=== PATIENT | female | born 1975 | race Caucasian/White ===

== ENCOUNTER 2019-03-31 14:33 | Inpatient (IN) | payer OTHER ==
[2019-03-31 15:34] VITALS: BMI 28.8
--- NOTE | 2019-03-31 18:13 | HP ---
COWS - Scale Resting Pulse: 0= [place] 80 or Below Sweatin=Flushed/Facial Moisture Restless Observation: 3= Extraneous Movement Pupil Size: 1= Pupils >than Normal Bone or Joint Aches: 2= Severe Diffuse Aches Runny Nose/ Eye Tearin= Runny Nose/Eyes GI Upset > 30mins: 2= Nausea/Diarrhea Tremor Observation: 2= Slight Tremor Visible Yawning Observation: 1= 1-2x During Session Anxiety or Irritability: 2=Irritable/Anxious Goose Flesh Skin: 3=Piloerection COWS Score: 20 CIWA Score Nausea/Vomitin Muscle Tremors: 3 Anxiety: 3 Agitation: 2 Paroxysmal Sweats: 2 Orientation: 0-Oriented Tacttile Disturbances: 2-Mild Itch/Numbness/Burn Auditory Disturbances: 1-Very Mild Visual Disturbances: 1-Very Mild Sensitivity Headache: 3-Moderate CIWA-Ar Total Score: 20 - Admission Criteria OASAS Guidelines: Admission for Medically Managed Detox: Requires at least one of the followin. CIWA greater than 12 2. Seizures within the past 24 hours 3. Delirium tremens within the past 24 hours 4. Hallucinations within the past 24 hours 5. Acute intervention needed for co occurring medical disorder 6. Acute intervention needed for co occurring psychiatric disorder 7. Severe withdrawal that cannot be handled at a lower level of care (continued vomiting, continued diarrhea, abnormal vital signs) requiring intravenous medication and/or fluids 8. Patient presents the following: CIWA greater than 12 Admission Criteria Met: Admission criteria met Admission ROS [facility] Chief Complaint: I am very sick and so over this Allergies/Adverse Reactions: Allergies Allergy/AdvReac Type Severity Reaction Status Date / Time buprenorphine [From Suboxone] Allergy Intermediate Rash Verified 03/31/19 15:27 naloxone [From Suboxone] Allergy Intermediate Rash Verified 03/31/19 15:27 History of Present Illness: 43 year old woman with dependence on heroin and Xanax, previously on methadone maintenance presents for detox. She denies overdose. - Ebola screening Have you traveled outside of the country in the last 21 days: No Have you had contact with anyone from an Ebola affected area: No Have you been sick,other than usual withdrawal symptoms: No Do you have a fever: No - Review of Systems Constitutional: Chills, Loss of Appetite, Changes in sleep, Unintentional Wgt. Loss EENT: reports: Blurred Vision, Nose Congestion, Sinus Pressure Respiratory: reports: SOB with Exertion Cardiac: reports: No Symptoms Reported GI: reports: Nausea, Poor Fluid Intake, Vomiting, Abdominal cramping : reports: No Symptoms Reported Musculoskeletal: reports: Back Pain, Joint Pain, Muscle Pain, Muscle Weakness, Neck Pain Integumentary: reports: Flushing, Sweating Neuro: reports: Headache, Tremors, Weakness Endocrine: reports: Intolerance to Cold Hematology: reports: No Symptoms Reported Psychiatric: reports: Anxious Other Systems: Reviewed and Negative Patient History - Patient Medical History Hx Anemia: No Hx Asthma: No Hx Chronic Obstructive Pulmonary Disease (COPD): No Hx Cancer: No Hx Cardiac Disorders: No Hx Congestive Heart Failure: No Hx Hypertension: No Hx Hypercholesterolemia: No Hx Pacemaker: No HX Cerebrovascular Accident: No Hx Seizures: No Hx Dementia: No Hx Diabetes: No Hx Gastrointestinal Disorders: No Hx Liver Disease: No Hx Genitourinary Disorders: No Hx Sexually Transmitted Disorders: No Hx Renal Disease (ESRD): No Hx Thyroid Disease: No Hx Human Immunodeficiency Virus (HIV): No Hx Hepatitis C: Yes (treated) Hx Depression: No Hx Suicide Attempt: No Hx Bipolar Disorder: No Hx Schizophrenia: No - Patient Surgical History Other Surgical History: tubal ligation - PPD History Previous Implant?: Yes Documented Results: Negative w/o proof Implanted On Prior R Admission?: No PPD to be Administered?: Yes - Reproductive History Patient is a Female of Child Bearing Age (11 -55 yrs old): Yes Last Menstrual Period: 11/30/18 Patient : No - Smoking Cessation Smoking history: Current every day smoker Have you smoked in the past 12 months: Yes Aproximately how many cigarettes per day: 20 Hx Chewing Tobacco Use: No Initiated information on smoking cessation: Yes 'Breaking Loose' booklet given: 03/31/19 - Substances abused Heroin Substance route: Injection Frequency: Daily Amount used: 20bags Age of first use: 33 Date of last use: 03/31/19 Alprazolam (Xanax) Substance route: Oral Frequency: Daily Amount used: 2mg Age of first use: 37 Date of last use: 03/30/19 Other Other (specify): fentanyl Substance route: Injection Frequency: Daily Amount used: 20 bags Age of first use: 43 Date of last use: 03/31/19 Admission Physical Exam [facility] - Vital Signs Vital Signs: Vital Signs - 24 hr 03/31/19 15:19 Temperature 98.7 F Pulse Rate 75 Respiratory 18 Rate Blood Pressure 100/70 - Physical General Appearance: Yes: Mild Distress HEENTM: Yes: Hearing grossly Normal, Normal ENT Inspection, Normocephalic, Normal Voice, Pharynx Normal, Tm's normal, Nasal Congestion Respiratory: Yes: Chest Non-Tender, Lungs Clear, Normal Breath Sounds, No Respiratory Distress, No Accessory Muscle Use Neck: Yes: No masses,lesions,Nodules, Supple Breast: Yes: Breast Exam Deferred Cardiology: Yes: Regular Rhythm, Regular Rate, S1, S2 Abdominal: Yes: Normal Bowel Sounds, Soft Genitourinary: Yes: Within Normal Limits Back: Yes: Normal Inspection Musculoskeletal: Yes: Back pain, Joint Stiffness, Muscle Pain, Muscle weakness Extremities: Yes: Tremors Neurological: Yes: Fully Oriented, Alert, Motor Strength 5/5, Normal Mood/Affect , Normal Response Integumentary: Yes: Clammy, Track Harris Lymphatic: Yes: Within Normal Limits - Diagnostic (1) Heroin addiction Current Visit: Yes Status: Acute (2) Benzodiazepine abuse, continuous Current Visit: Yes Status: Acute (3) Nicotine dependence Current Visit: Yes Status: Acute Qualifiers: Nicotine product type: cigarettes Substance use status: uncomplicated Qualified Code(s): F17.210 - Nicotine dependence, cigarettes, uncomplicated Cleared for Admission [facility] - Detox or Rehab [facility] Level of Care: Medically Managed Detox Regimen/Protocol: Methadone/Valium Claeared for Rehab Admission: No Breathalyzer - Breathalyzer Breathalyzer: 0 Urine Drug Screen - Test Device Lot number: [id number] Expiration date: 11/29/20 - Control Is test valid?: Yes - Results Drug screen NEGATIVE: No Urine drug screen results: FEN-Fentanyl, MOP-Opiates, BZO-Benzodiazepines Inpatient Rehab Admission - Rehab Decision to Admit Inpatient rehab admission?: No
[2019-03-31] MEDS ORDERED: BISMUTH SUBSALICYLATE 524 MG/30 ML UD PO PRN (18:26)
[2019-03-31] MEDS ORDERED: MAGNESIUM HYDROX 2400MG/30ML ORAL SUSPENSION 30 ML CUP PO PRN (18:26)
[2019-03-31] MEDS ORDERED: MAGNESIUM CITRATE 300 ML BOTTLE PO PRN (18:26)
[2019-03-31] MEDS ORDERED: MAG HYDROX/AL HYDROX/SIMETH 30 ML UNIT-DOSE CUP PO PRN (18:26)
[2019-03-31] MEDS ORDERED: NICOTINE POLACRILEX 2 MG GUM BUC PRN (18:26)
[2019-03-31] MEDS ORDERED: IBUPROFEN 400 MG TABLET (FP) PO PRN (18:26)
[2019-03-31] MEDS ORDERED: MENTHOL/PHENOL 1 EACH UD MM PRN (18:26)
[2019-03-31] MEDS ORDERED: NALOXONE HCL 0.4 MG/ML VIAL IM PRN (18:26)
[2019-03-31] MEDS ORDERED: ACETAMINOPHEN 325 MG TABLET (FP) PO PRN ×2 (18:26)
[2019-03-31] MEDS ORDERED: cloNIDine HCL 0.1 MG TABLET PO PRN (18:26)
[2019-03-31] MEDS ORDERED: METHADONE HCL 10 MG TABLET (FOR DETOX USE ONLY) PO ONE (18:26)
[2019-03-31] MEDS ORDERED: diazePAM 5 MG TABLET PO ONE (18:26)
[2019-03-31] MEDS: NICOTINE 14 MG/24 HOURS TOPICAL PATCH TD SCH (19:40)
[2019-03-31] MEDS: diazePAM 5 MG TABLET PO SCH (22:32)
[2019-03-31] MEDS: THIAMINE HCL 100 MG TABLET (FP) PO SCH (22:32)
[2019-03-31] MEDS: MELATONIN 5 MG TABLETS PO PRN (22:32)
[2019-04-01] MEDS: diazePAM 5 MG TABLET PO SCH ×3 (05:36→22:20)
[2019-04-01] MEDS ORDERED: METHADONE HCL 10 MG TABLET (FOR DETOX USE ONLY) ONE (08:34)
[2019-04-01] MEDS ORDERED: METHADONE HCL 5 MG TABLET (FOR DETOX USE ONLY) ONE (08:34)
[2019-04-01] MEDS ORDERED: TRIMETHOBENZAMIDE HCL 200MG/2ML INJ IM ONE (09:30)
[2019-04-01] MEDS ORDERED: METHADONE (DETOX) 20 MG, METHADONE (DETOX) 5 MG PO ONE (10:00)
[2019-04-01] MEDS: PRENATAL VITAMINS W/ FOLIC ACID TABLET (FP) PO SCH (10:14)
[2019-04-01] MEDS: diazePAM 5 MG TABLET PO PRN (10:16)
[2019-04-01] MEDS: NICOTINE 14 MG/24 HOURS TOPICAL PATCH TD SCH (10:17)
--- NOTE | 2019-04-01 10:55 | PN ---
[facility] CIWA - CIWA Score Nausea/Vomitin-Mild Nausea/No Vomiting Muscle Tremors: 4-Moderate,w/Arms Extend Anxiety: 4-Mod. Anxious/Guarded Agitation: 2 Paroxysmal Sweats: 2 Orientation: 2-Disoriented Date<2 days (date of week day of month) Tacttile Disturbances: 0-None Auditory Disturbances: 0-None Visual Disturbances: 0-None Headache: 0-None Present CIWA-Ar Total Score: 15 S COWS - Scale Resting Pulse: 0= [place] 80 or Below Sweatin= Chills/Flushing Restless Observation: 0= Sits Still Pupil Size: 1= Pupils >than Normal Bone or Joint Aches: 2= Severe Diffuse Aches Runny Nose/ Eye Tearin= Nasal Congestion GI Upset > 30mins: 2= Nausea/Diarrhea Tremor Observation of Outstretched Hands: 2= Slight Tremor Visible Yawning Observation: 1= 1-2x During Session Anxiety or Irritability: 2=Irritable/Anxious Goose Flesh Skin: 3=Piloerection COWS Score: 15 [facility] Progress Note (SOAP) Subjective: 43 years old female admitted on 03/31/19 for benzo and opiate withdrawal sx management treated with valium and methadone detox regimen feeling nausea unable to tolerated food and fluid tigan IM x 1 200 mg Objective: 04/01/19 10:55 Vital Signs Temperature 98.3 F 04/01/19 09:27 Pulse Rate 64 04/01/19 09:27 Respiratory Rate 18 04/01/19 09:27 Blood Pressure 111/71 04/01/19 09:27 O2 Sat by Pulse Oximetry (%) 04/01/19 10:55 lab pending Assessment: 04/01/19 10:56 benzo and opiate withdrawal sx Plan: continue valium and methadone detox regimen
[2019-04-01 12:35] LABS: HEMATOCRIT 37.4 % (32.4-45.2); HEMOGLOBIN 12.3 GM/dL (10.7-15.3); MCH 28.4 pg (25.7-33.7); MCHC 32.8 g/dl (32.0-36.0); MEAN CELL VOLUME 86.5 fl (80-96); RBC 4.32 M/mm3 (3.60-5.2); WHITE BLOOD COUNT 2.8 K/mm3 (4.0-10.0)
[2019-04-01 12:47] LABS: ALBUMIN 3.8 g/dl (3.4-5.0); BILIRUBIN,TOTAL 1.1 mg/dL (0.2-1); CALCIUM 8.8 mg/dL (8.5-10.1); CREATININE 0.8 mg/dL (0.55-1.3); POTASSIUM 3.5 mmol/L (3.5-5.1); TOT PROT 7.3 g/dl (6.4-8.2)
[2019-04-01 13:27] LABS: PLATELET COUNT 70 K/MM3 (134-434)
--- NOTE | 2019-04-01 13:57 | CONSULT ---
[facility] Psychiatric Consult - Data Date of interview: 04/01/19 Admission source: [facility] Identifying data: Distribution Center Manager approached patient for psychiatric consultation. Patient stated to sheet writer, " I am really sick right now. I don't want to talk." Psychiatric consultation refused. Nursing staff informed. Please order another psychiatric consultation if requested by patient.
[2019-04-01] MEDS: MELATONIN 5 MG TABLETS PO PRN (22:20)
[2019-04-01] MEDS: THIAMINE HCL 100 MG TABLET (FP) PO SCH (22:20)
[2019-04-02] MEDS: diazePAM 5 MG TABLET PO SCH ×2 (05:44→17:17)
[2019-04-02] MEDS: METHOCARBAMOL 500 MG TABLET PO PRN ×2 (05:46→17:17)
[2019-04-02] MEDS ORDERED: TRIMETHOBENZAMIDE HCL 200MG/2ML INJ IM ONE (09:52)
[2019-04-02] MEDS ORDERED: DIPHENOXYLATE 2.5/ATROPINE.025 1 COMBO TABLET PO ONE (09:52)
[2019-04-02] MEDS ORDERED: DICYCLOMINE HCL 10 MG CAPSULE PO ONE (09:54)
--- NOTE | 2019-04-02 09:56 | PN ---
S CIWA - CIWA Score Nausea/Vomitin Muscle Tremors: 4-Moderate,w/Arms Extend Anxiety: 3 Agitation: 2 Paroxysmal Sweats: 2 Orientation: 1-Uncertain about Date Tacttile Disturbances: 0-None Auditory Disturbances: 0-None Visual Disturbances: 0-None Headache: 0-None Present CIWA-Ar Total Score: 14 [facility] COWS - Scale Resting Pulse: 0= [place] 80 or Below Sweatin= Chills/Flushing Restless Observation: 0= Sits Still Pupil Size: 1= Pupils >than Normal Bone or Joint Aches: 1= Mild Discomfort Runny Nose/ Eye Tearin= Nasal Congestion GI Upset > 30mins: 3= Vomiting/Diarrhea Tremor Observation of Outstretched Hands: 2= Slight Tremor Visible Yawning Observation: 0= None Anxiety or Irritability: 2=Irritable/Anxious Goose Flesh Skin: 3=Piloerection COWS Score: 14 S Progress Note (SOAP) Subjective: 43 years old female admitted on 03/31/19 for benzo and opiate withdrawal sx management treated with valium and methadone detox regimen diarrhea x 1 lomotil x 1 vomiting x 1 tigan 200 mg IM x 1 bentyle x 1 discontinue motrin begin pepcide 20 mg po bid Objective: 04/02/19 10:00 Vital Signs Temperature 97.9 F 04/02/19 09:09 Pulse Rate 65 04/02/19 09:09 Respiratory Rate 18 04/02/19 09:09 Blood Pressure 98/62 04/02/19 09:09 O2 Sat by Pulse Oximetry (%) Laboratory Last Values WBC 2.8 K/mm3 (4.0-10.0) L 04/01/19 07:50 RBC 4.32 M/mm3 (3.60-5.2) 04/01/19 07:50 Hgb 12.3 GM/dL (10.7-15.3) 04/01/19 07:50 Hct 37.4 % (32.4-45.2) 04/01/19 07:50 MCV 86.5 fl (80-96) 04/01/19 07:50 MCH 28.4 pg (25.7-33.7) 04/01/19 07:50 MCHC 32.8 g/dl (32.0-36.0) 04/01/19 07:50 RDW 15.0 % (11.6-15.6) 04/01/19 07:50 Plt Count 70 K/MM3 (134-434) L 04/01/19 07:50 MPV 10.0 fl (7.5-11.1) 04/01/19 07:50 Sodium 138 mmol/L (136-145) 04/01/19 07:50 Potassium 3.5 mmol/L (3.5-5.1) 04/01/19 07:50 Chloride 104 mmol/L (98-107) 04/01/19 07:50 Carbon Dioxide 30 mmol/L (21-32) 04/01/19 07:50 Anion Gap 4 MMOL/L (8-16) L 04/01/19 07:50 BUN 13.0 mg/dL (7-18) 04/01/19 07:50 Creatinine 0.8 mg/dL (0.55-1.3) 04/01/19 07:50 Est GFR (CKD-EPI)AfAm 104.65 04/01/19 07:50 Est GFR (CKD-EPI)NonAf 90.30 04/01/19 07:50 Random Glucose 86 mg/dL (74-106) 04/01/19 07:50 Calcium 8.8 mg/dL (8.5-10.1) 04/01/19 07:50 Total Bilirubin 1.1 mg/dL (0.2-1) H 04/01/19 07:50 AST 16 U/L (15-37) 04/01/19 07:50 ALT 14 U/L (13-61) 04/01/19 07:50 Alkaline Phosphatase 65 U/L (45-117) 04/01/19 07:50 Total Protein 7.3 g/dl (6.4-8.2) 04/01/19 07:50 Albumin 3.8 g/dl (3.4-5.0) 04/01/19 07:50 lab noted 04/02/19 10:01 encourage oral fluid repeat cbc discontinue motrin Assessment: 04/02/19 10:02 benzo and opiate withdrawal sx Plan: continue valium and methadone detox regimen discuss medication assisted treatment program
[2019-04-02] MEDS ORDERED: METHADONE HCL 10 MG TABLET (FOR DETOX USE ONLY) PO ONE (10:00)
[2019-04-02] MEDS: diazePAM 5 MG TABLET PO PRN ×2 (10:14→22:15)
[2019-04-02] MEDS: PRENATAL VITAMINS W/ FOLIC ACID TABLET (FP) PO SCH (10:14)
[2019-04-02] MEDS: NICOTINE 14 MG/24 HOURS TOPICAL PATCH TD SCH (10:53)
--- NOTE | 2019-04-02 12:01 | EKG ---
Test Reason : Blood Pressure : / mmHG Vent. Rate : 065 BPM Atrial Rate : 065 BPM P-R Int : 170 ms QRS Dur : 082 ms QT Int : 418 ms P-R-T Axes : 045 046 053 degrees QTc Int : 434 ms NORMAL SINUS RHYTHM WITH SINUS ARRHYTHMIA NORMAL ECG NO PREVIOUS ECGS AVAILABLE Confirmed by KIRILL KIMBLE MD ([id number]) on 04/02/2019 12:00:32 PM Referred By: Confirmed By:KIRILL KIMBLE MD
[2019-04-02] MEDS: FAMOTIDINE 20 MG TABLET PO SCH ×2 (12:34→22:11)
[2019-04-02] MEDS: MELATONIN 5 MG TABLETS PO PRN (22:11)
[2019-04-02] MEDS: THIAMINE HCL 100 MG TABLET (FP) PO SCH (22:16)
[2019-04-03] MEDS: METHOCARBAMOL 500 MG TABLET PO PRN (05:26)
[2019-04-03] MEDS ORDERED: diazePAM 5 MG TABLET PO ONE (06:00)
[2019-04-03 06:04] VITALS: BP 102/64; PULSE 74; TEMP 98
[2019-04-03] MEDS ORDERED: METHADONE (DETOX) 10 MG, METHADONE (DETOX) 5 MG PO ONE (10:00)
--- NOTE | 2019-04-03 11:22 | DS ---
[facility] Detox Discharge Summary Admission Date: 03/31/19 Discharge Date: 04/03/19 - History Present History: Opioid Dependence, Sedative Dependence Additional Comments: 43 years old female admitted on 03/31/19 for benzo and opiate withdrawal sx management treated with valium and methadone detox regimen patient insists to leave the detox unit patient is alert oriented x 3 steady gait speech clearly coherently refuses discharge ciwa and cows refuses discharge physical examination Pertinent Past History: discharge status discussed with the nurse that against medical advice is appropriated and best suitable for the circumstance - Physical Exam Results Vital Signs: Vital Signs Temperature 98.0 F 04/03/19 06:04 Pulse Rate 74 04/03/19 06:04 Respiratory Rate 18 04/03/19 06:04 Blood Pressure 102/64 04/03/19 06:04 O2 Sat by Pulse Oximetry (%) Pertinent Admission Physical Exam Findings: benzo and opiate withdrawal sx Laboratory Last Values WBC 2.8 K/mm3 (4.0-10.0) L 04/01/19 07:50 RBC 4.32 M/mm3 (3.60-5.2) 04/01/19 07:50 Hgb 12.3 GM/dL (10.7-15.3) 04/01/19 07:50 Hct 37.4 % (32.4-45.2) 04/01/19 07:50 MCV 86.5 fl (80-96) 04/01/19 07:50 MCH 28.4 pg (25.7-33.7) 04/01/19 07:50 MCHC 32.8 g/dl (32.0-36.0) 04/01/19 07:50 RDW 15.0 % (11.6-15.6) 04/01/19 07:50 Plt Count 70 K/MM3 (134-434) L 04/01/19 07:50 MPV 10.0 fl (7.5-11.1) 04/01/19 07:50 Sodium 138 mmol/L (136-145) 04/01/19 07:50 Potassium 3.5 mmol/L (3.5-5.1) 04/01/19 07:50 Chloride 104 mmol/L (98-107) 04/01/19 07:50 Carbon Dioxide 30 mmol/L (21-32) 04/01/19 07:50 Anion Gap 4 MMOL/L (8-16) L 04/01/19 07:50 BUN 13.0 mg/dL (7-18) 04/01/19 07:50 Creatinine 0.8 mg/dL (0.55-1.3) 04/01/19 07:50 Est GFR (CKD-EPI)AfAm 104.65 04/01/19 07:50 Est GFR (CKD-EPI)NonAf 90.30 04/01/19 07:50 Random Glucose 86 mg/dL (74-106) 04/01/19 07:50 Calcium 8.8 mg/dL (8.5-10.1) 04/01/19 07:50 Total Bilirubin 1.1 mg/dL (0.2-1) H 04/01/19 07:50 AST 16 U/L (15-37) 04/01/19 07:50 ALT 14 U/L (13-61) 04/01/19 07:50 Alkaline Phosphatase 65 U/L (45-117) 04/01/19 07:50 Total Protein 7.3 g/dl (6.4-8.2) 04/01/19 07:50 Albumin 3.8 g/dl (3.4-5.0) 04/01/19 07:50 POC Urine HCG, Qual Negative 03/31/19 17:33 lab noted low plt no motrin low wbc patient agrees to follow up with [facility] provider - Treatment Hospital Course: Detox Protocol Followed, Responded well Patient has Accepted a Rehab Referral to: [facility] - Medication Discharge Medications: Ambulatory Orders Naloxone HCl [Narcan] 4 mg NS ASDIR PRN #1 spray 04/01/19 - Diagnosis (1) Sedative, hypnotic or anxiolytic abuse, uncomplicated Status: Acute (2) Heroin addiction Status: Acute (3) Nicotine dependence Status: Acute Qualifiers: Nicotine product type: cigarettes Substance use status: in withdrawal Qualified Code(s): F17.213 - Nicotine dependence, cigarettes, with withdrawal - AMA Did Patient Leave Against Medical Advice: Yes
[2019-04-04] MEDS ORDERED: METHADONE HCL 10 MG TABLET (FOR DETOX USE ONLY) PO ONE (10:00)
[2019-04-05] MEDS ORDERED: METHADONE HCL 5 MG TABLET (FOR DETOX USE ONLY) PO ONE (06:00)
== END 2019-04-03 08:48 | disposition home or self-care (01) | DRG 773 ==
LOC: YASAS 14:33 → Y3N 19:02
PROVIDERS: ADMIT Allergy & Immunology; ATTEND Allergy & Immunology
PROC: HZ2ZZZZ Detoxification Services for Substance Abuse Treatment (ICD-10-PCS; principal; 2019-03-31)
DX: F11.23 Opioid dependence with withdrawal (principal); F13.230 Sedative, hypnotic or anxiolytic dependence with withdrawal, uncomplicated; F17.210 Nicotine dependence, cigarettes, uncomplicated; Z86.19 Personal history of other infectious and parasitic diseases; Z88.8 Allergy status to other drugs, medicaments and biological substances
CPT/HCPCS: 36415; 80053; 81025; 85027; 86593; 93005; 93010

== ENCOUNTER 2019-04-24 09:09 | Inpatient (IN) | payer OTHER ==
[2019-04-24 09:39] VITALS: BMI 29.2
--- NOTE | 2019-04-24 10:04 | HP ---
COWS - Scale Resting Pulse: 1= [place] 81-100 Sweatin= Chills/Flushing Restless Observation: 1= Difficult to Sit Still Pupil Size: 1= Pupils >than Normal Bone or Joint Aches: 2= Severe Diffuse Aches Runny Nose/ Eye Tearin= Runny Nose/Eyes GI Upset > 30mins: 2= Nausea/Diarrhea Tremor Observation: 2= Slight Tremor Visible Yawning Observation: 1= 1-2x During Session Anxiety or Irritability: 2=Irritable/Anxious Goose Flesh Skin: 0=Smooth Skin COWS Score: 15 CIWA Score Nausea/Vomitin Muscle Tremors: 2 Anxiety: 3 Agitation: 3 Paroxysmal Sweats: 1-Minimal Palms Moist Orientation: 0-Oriented Tacttile Disturbances: 1-Very Mild Itch/Numbness Auditory Disturbances: 0-None Visual Disturbances: 0-None Headache: 2-Mild CIWA-Ar Total Score: 14 - Admission Criteria OASAS Guidelines: Admission for Medically Managed Detox: Requires at least one of the followin. CIWA greater than 12 2. Seizures within the past 24 hours 3. Delirium tremens within the past 24 hours 4. Hallucinations within the past 24 hours 5. Acute intervention needed for co occurring medical disorder 6. Acute intervention needed for co occurring psychiatric disorder 7. Severe withdrawal that cannot be handled at a lower level of care (continued vomiting, continued diarrhea, abnormal vital signs) requiring intravenous medication and/or fluids 8. Admitting History and Physical - Admission Chief Complaint: i patrick help to stop using fatanyl and xanax History of Present Illness: this 43 years old female with fantanyl and xanax dependence,seeking detox, withdrawal symptom,seeking detox, last detox 03/31/19 to 04/03/19 no seizure syncope nicotine dependence 1/2 pack insomnia no significant period of sobriety History Source: Patient Limitations to Obtaining History: No Limitations - Past Medical History ...LMP: 04/23/19 ...: No ...: 2 ...Para: 2 - Past Surgical History Past Surgical History: Yes: Tubal Ligation (in 1996) - Smoking History Smoking history: Current every day smoker Have you smoked in the past 12 months: Yes Aproximately how many cigarettes per day: 20 - Alcohol/Substance Use Hx Alcohol Use: No History of Substance Use: reports: Heroin, Tranquilizers - Social History Usual Living Arrangement: Yes: Alone Occupation: unemployed History of Recent Travel: No Other Social History: this 43 years old female with opiate opendence fantanyl and xanax,. unemployed,nicotine dependence,syncope,seeking help Admission [facility] Chief Complaint: i patrick help to stop using opiate fantanyl,xanax Allergies/Adverse Reactions: Allergies Allergy/AdvReac Type Severity Reaction Status Date / Time buprenorphine [From Suboxone] Allergy Intermediate Rash Verified 04/24/19 09:27 naloxone [From Suboxone] Allergy Intermediate Rash Verified 04/24/19 09:27 History of Present Illness: this 43 years old female with opiate fantanyl and xanax dependence,seeking detox ,withdrawal symptom, been to this facility before,last detox 03/31/19 to 04/03/19 denied seizure syncope nicotine dependence no significant period of sobriety insomnia,anxiety and depression living alone Exam Limitations: No Limitations - Ebola screening Have you traveled outside of the country in the last 21 days: No Have you had contact with anyone from an Ebola affected area: No Do you have a fever: No - Review of Systems Constitutional: Chills, Loss of Appetite, Malaise, Night Sweats, Changes in sleep, Weakness EENT: reports: Tearing, Nose Congestion Respiratory: reports: No Symptoms reported Cardiac: reports: No Symptoms Reported GI: reports: Nausea, Poor Appetite, Abdominal cramping : reports: No Symptoms Reported Musculoskeletal: reports: Back Pain, Joint Pain, Muscle Pain Integumentary: reports: Dryness Endocrine: reports: No Symptoms Reported Hematology: reports: No Symptoms Reported Psychiatric: reports: No Sypmtoms Reported, Judgement Intact, Mood/Affect Appropiate, Orientated x3, Anxious, Depressed, other (insomnia) Other Systems: Reviewed and Negative Patient History - Patient Medical History Hx Anemia: No Hx Asthma: No Hx Chronic Obstructive Pulmonary Disease (COPD): No Hx Cancer: No Hx Cardiac Disorders: No Hx Congestive Heart Failure: No Hx Hypertension: No Hx Hypercholesterolemia: No Hx Pacemaker: No HX Cerebrovascular Accident: No Hx Seizures: No Hx Dementia: No Hx Diabetes: No Hx Gastrointestinal Disorders: No Hx Liver Disease: No Hx Genitourinary Disorders: No Hx Sexually Transmitted Disorders: No Hx Renal Disease (ESRD): No Hx Thyroid Disease: No Hx Human Immunodeficiency Virus (HIV): No (last 2018 negative) Hx Hepatitis C: Yes (treated) Hx Depression: Yes Hx Suicide Attempt: No Hx Bipolar Disorder: No Hx Schizophrenia: No Other Medical History: anxiety,insomnia,no suicidal,no homicidal - Patient Surgical History Past Surgical History: Yes Other Surgical History: tubal ligation - PPD History Previous Implant?: Yes Implanted On Prior [facility] Admission?: Yes Date: 04/02/19 Results: 0 mm PPD to be Administered?: No - Reproductive History Patient is a Female of Child Bearing Age (11 -55 yrs old): Yes Last Menstrual Period: 04/23/19 Patient : No - Smoking Cessation Smoking history: Current every day smoker Have you smoked in the past 12 months: Yes Aproximately how many cigarettes per day: 10 Hx Chewing Tobacco Use: No Initiated information on smoking cessation: Yes 'Breaking Loose' booklet given: 04/24/19 - Substance & Tx. History Hx Alcohol Use: No Hx Substance Use: Yes Substance Use Type: Opiates, Tranquilizers Hx Substance Use Treatment: Yes ([facility] 03/31/19 to 04/03/19) - Substances abused Heroin Substance route: Injection Frequency: Daily Amount used: 20bags Age of first use: 33 Date of last use: 03/31/19 Alprazolam (Xanax) Substance route: Oral Frequency: Daily Amount used: 4mgs Age of first use: 37 Date of last use: 04/22/19 Other Other (specify): fentanyl Substance route: Injection Frequency: Daily Amount used: 20 bags Age of first use: 43 Date of last use: 04/24/19 Admission Physical Exam S - Vital Signs Vital Signs: Vital Signs - 24 hr 04/24/19 09:22 Temperature 97.2 F L Pulse Rate 85 Respiratory 20 Rate Blood Pressure 106/74 - Physical General Appearance: Yes: Moderate Distress, Tremorous, Irritable, Sweating, Anxious HEENTM: Yes: LISBETH, Pharynx Normal, Photophobia Respiratory: Yes: Lungs Clear, Normal Breath Sounds, No Respiratory Distress Neck: Yes: Supple, Trachea in good position Breast: Yes: Breast Exam Deferred Cardiology: Yes: Within Normal Limits, Regular Rhythm, Regular Rate, S1, S2 Abdominal: Yes: Within Normal Limits, Normal Bowel Sounds, Non Tender, Flat, Soft Genitourinary: Yes: Within Normal Limits Back: Yes: Muscle Spasm Musculoskeletal: Yes: Back pain, Muscle Pain Extremities: Yes: Normal Range of Motion, Tremors Neurological: Yes: transportation aid II-XII NML intact, Fully Oriented, Alert, Motor Strength 5/5 Integumentary: Yes: Dry Lymphatic: Yes: Within Normal Limits - Diagnostic (1) Opiate dependence Current Visit: Yes Status: Acute (2) Sedative, hypnotic or anxiolytic abuse, uncomplicated Current Visit: No Status: Acute (3) Nicotine dependence Current Visit: Yes Status: Chronic Qualifiers: Nicotine product type: cigarettes Substance use status: in withdrawal Qualified Code(s): F17.213 - Nicotine dependence, cigarettes, with withdrawal (4) IVDU (intravenous drug user) Current Visit: Yes Status: Acute (5) Dehydration Current Visit: Yes Status: Acute (6) Opioid dependence with withdrawal Current Visit: Yes Status: Acute Cleared for Admission S - Detox or Rehab [facility] Level of Care: Medically Managed Detox Regimen/Protocol: Methadone/Valium Breathalyzer - Breathalyzer Breathalyzer: 0 Urine Drug Screen - Test Device Lot number: [id number] Expiration date: 11/28/20 - Control Is test valid?: Yes - Results Drug screen NEGATIVE: No Urine drug screen results: FEN-Fentanyl, BZO-Benzodiazepines Inpatient Rehab Admission - Rehab Decision to Admit Inpatient rehab admission?: No
[2019-04-24] MEDS ORDERED: BISMUTH SUBSALICYLATE 262 MG/15 ML BTL PO PRN (10:34)
[2019-04-24] MEDS ORDERED: MAG HYDROX/AL HYDROX/SIMETH 30 ML UNIT-DOSE CUP PO PRN (10:34)
[2019-04-24] MEDS ORDERED: IBUPROFEN 400 MG TABLET (FP) PO PRN (10:34)
[2019-04-24] MEDS ORDERED: MAGNESIUM CITRATE 300 ML BOTTLE PO PRN (10:34)
[2019-04-24] MEDS ORDERED: ACETAMINOPHEN 325 MG TABLET (FP) PO PRN (10:34)
[2019-04-24] MEDS ORDERED: MAGNESIUM HYDROX 2400MG/30ML ORAL SUSPENSION 30 ML CUP PO PRN (10:34)
[2019-04-24] MEDS ORDERED: MENTHOL/PHENOL 1 EACH UD MM PRN (10:34)
[2019-04-24] MEDS ORDERED: MELATONIN 5 MG TABLETS PO PRN (10:34)
[2019-04-24] MEDS ORDERED: METHADONE HCL 10 MG TABLET (FOR DETOX USE ONLY) PO ONE (11:15)
[2019-04-24] MEDS: diazePAM 5 MG TABLET PO SCH ×2 (13:12→22:19)
[2019-04-24] MEDS: NICOTINE 21 MG/24 HOURS TOPICAL PATCH TD SCH (13:13)
[2019-04-24 15:44] LABS: HEMATOCRIT 37.4 % (32.4-45.2); HEMOGLOBIN 12.3 GM/dL (10.7-15.3); MCH 28.9 pg (25.7-33.7); MCHC 32.8 g/dl (32.0-36.0); MEAN CELL VOLUME 87.9 fl (80-96); MEAN PLT VOLUME 10.2 fl (7.5-11.1); PLATELET COUNT 77 K/MM3 (134-434); RBC 4.26 M/mm3 (3.60-5.2); RDW 15.8 % (11.6-15.6); WHITE BLOOD COUNT 2.7 K/mm3 (4.0-10.0)
[2019-04-24 15:57] LABS: ALBUMIN 3.9 g/dl (3.4-5.0); BILIRUBIN,TOTAL 0.9 mg/dL (0.2-1); BLOOD UREA NITROGEN 10.9 mg/dL (7-18); CALCIUM 8.3 mg/dL (8.5-10.1); CREATININE 0.8 mg/dL (0.55-1.3); POTASSIUM 4.1 mmol/L (3.5-5.1); TOT PROT 7.4 g/dl (6.4-8.2)
--- NOTE | 2019-04-24 16:05 | CONSULT ---
[facility] Psychiatric Consult - Data Date of interview: 04/24/19 Admission source: [facility] Identifying data: Revisit to [facility] and admission to [address] [place] [address] for this 43 y/o female, self-referred for detoxification. JONAH issues : opioid, xanax, nicotine. Patient is , mother of two, domiciled, unemployed and currently supported on welfare + occasional donations from relatives. Substance Abuse History: Discussed with the patient. For details, refer to current [facility] report. As follows : Smoking history: Current every day smoker. Have you smoked in the past 12 months: Yes. Aproximately how many cigarettes per day: 10. Hx Chewing Tobacco Use: No. Initiated information on smoking cessation: Yes. 'Breaking Loose' booklet given: 04/24/19. - Substance & Tx. History. Hx Alcohol Use: No. Hx Substance Use: Yes. Substance Use Type: Opiates, Tranquilizers. Hx Substance Use Treatment: Yes ([facility] 03/31/19 to ). - Substances abused. Heroin. Substance route: Injection. Frequency: Daily. Amount used: 20bags. Age of first use: 33. Date of last use: . Alprazolam (Xanax). Substance route: Oral. Frequency: Daily. Amount used: 4mgs. Age of first use: 37. Date of last use: 04/22/19. Other. Other (specify): fentanyl. Substance route: Injection. Frequency: Daily. Amount used: 20 bags. Age of first use: 43. Date of last use: 04/24/19 Medical History: Medical profile is remarkable for hepatitis C (treated) and history of tubal ligation. Psychiatric History: Patient endorses a history of one psychiatric hospitalization ([facility]) in 2015. Reportedly diagnosed with MDD, Anxiety Disorder and PTSD. Ms Joseph reports that she has stopped seeing her psychiatrist about two years ago. She states that she has been prescribed various medications that include quetiapine, wellbutrin, mirtazapine , aripriprazole, clonazepam and other unnamed molecules. Currently lost to psychiatric follow-up. Patient denies history of suicide attempts. Physical/Sexual Abuse/Trauma History: History of severe trauma : of (10 years ago). Additional Comment: Urine drug screen results: FEN-Fentanyl, BZO- Benzodiazepines. Noted. Mental Status Exam - Mental Status Exam Alert and Oriented to: Time, Place, Person Cognitive Function: Good Patient Appearance: Well Groomed (overweight) Mood: Anxious (dysphoric ), Hopeful Affect: Mood Congruent, Constricted Patient Behavior: Fatigued, Appropriate, Cooperative Speech Pattern: Clear Voice Loudness: Normal Thought Process: Intact, Goal Oriented Thought Disorder: Not Present Hallucinations: Denies Suicidal Ideation: Denies Homicidal Ideation: Denies Insight/Judgement: Poor Sleep: Poorly, Difficulty falling asleep (request for seroquel) Appetite: Fair Gait/Station: Normal Psychiatric Findings - Problem List ([place] 1, 2,3) (1) Opioid use disorder Current Visit: Yes Status: Chronic (2) Benzodiazepine abuse, continuous Current Visit: Yes Status: Acute (3) Nicotine dependence Current Visit: Yes Status: Chronic Qualifiers: Nicotine product type: cigarettes Substance use status: in withdrawal Qualified Code(s): F17.213 - Nicotine dependence, cigarettes, with withdrawal (4) Substance induced mood disorder Current Visit: Yes Status: Chronic (5) History of depression Current Visit: Yes Status: Chronic Comment: Non compliant with OPD care. (6) Insomnia Current Visit: Yes Status: Chronic (7) Non-compliance Current Visit: Yes Status: Chronic - Initial Treatment Plan Initial Treatment Plan: Interview conducted with retort furnace helper, tavern car attendant [place], in attendance (with patient's permission). Psychoeducation. Support. Sleep hygiene. Detoxification. Patient has specifically requested seroquel to address insomnia. Alternate hypnotics revisited (mirtazapine, trazodone, tricyclics) : patient declines. Made aware of potential for metabolic syndrome, abnormal involuntary movements, sedation, falls and cardiovascular adverse events. Informed of the fact that seroquel's use for insomnia is NOT an FDA- approved application (rather off-label utilization). " I am fully aware of the issue. I have been on seroquel before. I simply want to be on seroquel just for the duration of my detox." Patient declines to take any other psychotropic medication with the exception of drugs indicated for the detoxification process. Seroquel 50 mg po hs. Ordered. Ms Joseph gave consent (verbal) to . She states that she is planning to contact her psychiatrist (after completion of detox) for resumption of OPD care. Observation.
[2019-04-24] MEDS: THIAMINE HCL 100 MG TABLET (FP) PO SCH (22:19)
[2019-04-24] MEDS: QUEtiapine FUMARATE 50 MG TABLET PO SCH (22:19)
[2019-04-24] MEDS: METHOCARBAMOL 500 MG TABLET PO PRN (22:20)
[2019-04-25] MEDS: diazePAM 5 MG TABLET PO SCH ×3 (06:08→22:37)
[2019-04-25] MEDS ORDERED: METHADONE HCL 10 MG TABLET (FOR DETOX USE ONLY) ONE (08:22)
[2019-04-25] MEDS ORDERED: METHADONE HCL 5 MG TABLET (FOR DETOX USE ONLY) ONE (08:22)
[2019-04-25] MEDS ORDERED: METHADONE (DETOX) 20 MG, METHADONE (DETOX) 5 MG PO ONE (10:00)
[2019-04-25] MEDS ORDERED: LOPERAMIDE HCL 2 MG CAPSULE PO ONE (10:02)
[2019-04-25] MEDS ORDERED: ACETAMINOPHEN 325 MG TABLET (FP) PO ONE (10:03)
--- NOTE | 2019-04-25 10:08 | PN ---
[facility] CIWA - CIWA Score Nausea/Vomitin-Mild Nausea/No Vomiting Muscle Tremors: 4-Moderate,w/Arms Extend Anxiety: 3 Agitation: 1-Slight > Activity Paroxysmal Sweats: 2 Orientation: 1-Uncertain about Date (date of the week) Tacttile Disturbances: 0-None Auditory Disturbances: 0-None Visual Disturbances: 0-None Headache: 1-Very Mild CIWA-Ar Total Score: 13 BHS COWS - Scale Resting Pulse: 0= [place] 80 or Below Sweatin= Chills/Flushing Restless Observation: 0= Sits Still Pupil Size: 1= Pupils >than Normal Bone or Joint Aches: 1= Mild Discomfort Runny Nose/ Eye Tearin= None GI Upset > 30mins: 2= Nausea/Diarrhea Tremor Observation of Outstretched Hands: 2= Slight Tremor Visible Yawning Observation: 1= 1-2x During Session Anxiety or Irritability: 2=Irritable/Anxious Goose Flesh Skin: 3=Piloerection COWS Score: 13 S Progress Note (SOAP) Subjective: 43 years old female admitted on 04/24/19 for benzo and opiate withdrawal sx management treating with valium and methadone detox regimen ate breakfast tolerated food and fluid well nausea after breakfast zofran 8 mg sl x 1 mild headache tylenal 650 mg po x 1 loose stool x 2 imodium 4 mg po x 1 Objective: 04/25/19 10:13 Vital Signs Temperature 98.1 F 04/25/19 09:22 Pulse Rate 61 04/25/19 09:22 Respiratory Rate 18 04/25/19 09:22 Blood Pressure 90/58 L 04/25/19 09:22 O2 Sat by Pulse Oximetry (%) Laboratory Last Values WBC 2.7 K/mm3 (4.0-10.0) L 04/24/19 10:35 RBC 4.26 M/mm3 (3.60-5.2) 04/24/19 10:35 Hgb 12.3 GM/dL (10.7-15.3) 04/24/19 10:35 Hct 37.4 % (32.4-45.2) 04/24/19 10:35 MCV 87.9 fl (80-96) 04/24/19 10:35 MCH 28.9 pg (25.7-33.7) 04/24/19 10:35 MCHC 32.8 g/dl (32.0-36.0) 04/24/19 10:35 RDW 15.8 % (11.6-15.6) H 04/24/19 10:35 Plt Count 77 K/MM3 (134-434) L 04/24/19 10:35 MPV 10.2 fl (7.5-11.1) 04/24/19 10:35 Sodium 137 mmol/L (136-145) 04/24/19 10:35 Potassium 4.1 mmol/L (3.5-5.1) 04/24/19 10:35 Chloride 106 mmol/L (98-107) 04/24/19 10:35 Carbon Dioxide 26 mmol/L (21-32) 04/24/19 10:35 Anion Gap 4 MMOL/L (8-16) L 04/24/19 10:35 BUN 10.9 mg/dL (7-18) 04/24/19 10:35 Creatinine 0.8 mg/dL (0.55-1.3) 04/24/19 10:35 Est GFR (CKD-EPI)AfAm 104.65 04/24/19 10:35 Est GFR (CKD-EPI)NonAf 90.30 04/24/19 10:35 Random Glucose 90 mg/dL (74-106) 04/24/19 10:35 Calcium 8.3 mg/dL (8.5-10.1) L 04/24/19 10:35 Total Bilirubin 0.9 mg/dL (0.2-1) 04/24/19 10:35 AST 16 U/L (15-37) 04/24/19 10:35 ALT 17 U/L (13-61) 04/24/19 10:35 Alkaline Phosphatase 68 U/L (45-117) 04/24/19 10:35 Total Protein 7.4 g/dl (6.4-8.2) 04/24/19 10:35 Albumin 3.9 g/dl (3.4-5.0) 04/24/19 10:35 lab noted low wbc patient is asymptomatic at this time 04/25/19 10:16 04/25/19 10:19 Assessment: 04/25/19 10:20 benzo and opiate withdrawal discussed risks of benzo mixed with opiate abuse Plan: valium and methadone regimens
[2019-04-25] MEDS ORDERED: ONDANSETRON *ODT* 4 MG TABLET SL ONE (10:12)
[2019-04-25] MEDS: PRENATAL VITAMINS W/ FOLIC ACID TABLET (FP) PO SCH (10:32)
[2019-04-25] MEDS: NICOTINE 21 MG/24 HOURS TOPICAL PATCH TD SCH (10:32)
[2019-04-25] MEDS: diazePAM 5 MG TABLET PO PRN (10:33)
[2019-04-25] MEDS: ACETAMINOPHEN 325 MG TABLET (FP) PO PRN (15:05)
[2019-04-25] MEDS: cloNIDine HCL 0.1 MG TABLET PO PRN (15:05)
[2019-04-25] MEDS: THIAMINE HCL 100 MG TABLET (FP) PO SCH (22:37)
[2019-04-25] MEDS: QUEtiapine FUMARATE 50 MG TABLET PO SCH (22:38)
[2019-04-26] MEDS: diazePAM 5 MG TABLET PO SCH ×2 (05:57→17:21)
[2019-04-26] MEDS ORDERED: METHADONE HCL 10 MG TABLET (FOR DETOX USE ONLY) PO ONE (10:00)
[2019-04-26] MEDS: METHOCARBAMOL 500 MG TABLET PO PRN (10:32)
[2019-04-26] MEDS: PRENATAL VITAMINS W/ FOLIC ACID TABLET (FP) PO SCH (10:32)
[2019-04-26] MEDS: NICOTINE 21 MG/24 HOURS TOPICAL PATCH TD SCH (10:33)
[2019-04-26] MEDS: diazePAM 5 MG TABLET PO PRN (10:38)
--- NOTE | 2019-04-26 11:22 | PN ---
[facility] CIWA - CIWA Score Nausea/Vomitin-Mild Nausea/No Vomiting Muscle Tremors: 3 Anxiety: 3 Agitation: 2 Paroxysmal Sweats: 1-Minimal Palms Moist Orientation: 0-Oriented Tacttile Disturbances: 0-None Auditory Disturbances: 0-None Visual Disturbances: 0-None Headache: 0-None Present CIWA-Ar Total Score: 10 BHS COWS - Scale Resting Pulse: 0= [place] 80 or Below Sweatin= Chills/Flushing Restless Observation: 0= Sits Still Pupil Size: 1= Pupils >than Normal Bone or Joint Aches: 1= Mild Discomfort Runny Nose/ Eye Tearin= Nasal Congestion GI Upset > 30mins: 2= Nausea/Diarrhea Tremor Observation of Outstretched Hands: 1= Tremor [place], Not Seen Yawning Observation: 1= 1-2x During Session Anxiety or Irritability: 2=Irritable/Anxious Goose Flesh Skin: 0=Smooth Skin COWS Score: 10 S Progress Note (SOAP) Subjective: 43 years old female admitted on 04/24/19 for benzo and opiate withdrawal sx management treating with valium and methadone detox regimens feeling ok today social with roommate and peers in day room patient was in the methadone program "many years ago" successfully avoid street opioid substance but weight gain "I do not want to go back to it again" Objective: 04/26/19 11:32 Vital Signs Temperature 98.9 F 04/26/19 09:28 Pulse Rate 69 04/26/19 09:28 Respiratory Rate 18 04/26/19 09:28 Blood Pressure 101/73 04/26/19 09:28 O2 Sat by Pulse Oximetry (%) Laboratory Last Values WBC 2.7 K/mm3 (4.0-10.0) L 04/24/19 10:35 RBC 4.26 M/mm3 (3.60-5.2) 04/24/19 10:35 Hgb 12.3 GM/dL (10.7-15.3) 04/24/19 10:35 Hct 37.4 % (32.4-45.2) 04/24/19 10:35 MCV 87.9 fl (80-96) 04/24/19 10:35 MCH 28.9 pg (25.7-33.7) 04/24/19 10:35 MCHC 32.8 g/dl (32.0-36.0) 04/24/19 10:35 RDW 15.8 % (11.6-15.6) H 04/24/19 10:35 Plt Count 77 K/MM3 (134-434) L 04/24/19 10:35 MPV 10.2 fl (7.5-11.1) 04/24/19 10:35 Sodium 137 mmol/L (136-145) 04/24/19 10:35 Potassium 4.1 mmol/L (3.5-5.1) 04/24/19 10:35 Chloride 106 mmol/L (98-107) 04/24/19 10:35 Carbon Dioxide 26 mmol/L (21-32) 04/24/19 10:35 Anion Gap 4 MMOL/L (8-16) L 04/24/19 10:35 BUN 10.9 mg/dL (7-18) 04/24/19 10:35 Creatinine 0.8 mg/dL (0.55-1.3) 04/24/19 10:35 Est GFR (CKD-EPI)AfAm 104.65 04/24/19 10:35 Est GFR (CKD-EPI)NonAf 90.30 04/24/19 10:35 Random Glucose 90 mg/dL (74-106) 04/24/19 10:35 Calcium 8.3 mg/dL (8.5-10.1) L 04/24/19 10:35 Total Bilirubin 0.9 mg/dL (0.2-1) 04/24/19 10:35 AST 16 U/L (15-37) 04/24/19 10:35 ALT 17 U/L (13-61) 04/24/19 10:35 Alkaline Phosphatase 68 U/L (45-117) 04/24/19 10:35 Total Protein 7.4 g/dl (6.4-8.2) 04/24/19 10:35 Albumin 3.9 g/dl (3.4-5.0) 04/24/19 10:35 RPR Titer Nonreactive (NONREACTIVE) 04/24/19 10:35 lab noted reports "My wbc always low" numerous hemotology referral "I was too busy using drug" patient agrees returning to her primary care provider for low wbc follow up Assessment: 04/26/19 11:21 benzo and opiate withdrawal Plan: valium and methadone regimens
[2019-04-26] MEDS: cloNIDine HCL 0.1 MG TABLET PO PRN (11:56)
[2019-04-26] MEDS ORDERED: LOPERAMIDE HCL 2 MG CAPSULE PO PRN (19:56)
[2019-04-26] MEDS: THIAMINE HCL 100 MG TABLET (FP) PO SCH (22:17)
[2019-04-26] MEDS: QUEtiapine FUMARATE 50 MG TABLET PO SCH (22:17)
[2019-04-27] MEDS ORDERED: diazePAM 5 MG TABLET PO ONE (06:00)
[2019-04-27] MEDS ORDERED: METHADONE HCL 10 MG TABLET (FOR DETOX USE ONLY) ONE (08:18)
[2019-04-27] MEDS ORDERED: METHADONE HCL 5 MG TABLET (FOR DETOX USE ONLY) ONE (08:18)
[2019-04-27] MEDS ORDERED: METHADONE (DETOX) 10 MG, METHADONE (DETOX) 5 MG PO ONE (10:00)
[2019-04-27] MEDS: PRENATAL VITAMINS W/ FOLIC ACID TABLET (FP) PO SCH (10:08)
[2019-04-27] MEDS: diazePAM 5 MG TABLET PO PRN (10:08)
[2019-04-27] MEDS: NICOTINE 21 MG/24 HOURS TOPICAL PATCH TD SCH (10:08)
--- NOTE | 2019-04-27 12:18 | PN ---
[facility] CIWA - CIWA Score Nausea/Vomitin-No Nausea/No Vomiting Muscle Tremors: None Anxiety: 3 Agitation: 0-Normal Activity Paroxysmal Sweats: 3 Orientation: 0-Oriented Tacttile Disturbances: 0-None Auditory Disturbances: 0-None Visual Disturbances: 0-None Headache: 2-Mild CIWA-Ar Total Score: 8 S COWS - Scale Resting Pulse: 1= [place] 81-100 Sweatin= Beads of Sweat on Face Restless Observation: 1= Difficult to Sit Still Pupil Size: 0= Normal to Room Light Bone or Joint Aches: 0= None Runny Nose/ Eye Tearin= None GI Upset > 30mins: 0= None Tremor Observation of Outstretched Hands: 0= None Yawning Observation: 1= 1-2x During Session Anxiety or Irritability: 2=Irritable/Anxious Goose Flesh Skin: 0=Smooth Skin COWS Score: 8 [facility] Progress Note (SOAP) Subjective: c/o sweats, anxiety, and headache. Objective: 04/27/19 12:18 Vital Signs 04/27/19 04/27/19 06:19 09:12 Temperature 98.2 F 98.4 F Pulse Rate 74 86 Respiratory 16 18 Rate Blood Pressure 101/72 105/79 Laboratory Last Values WBC 2.7 K/mm3 (4.0-10.0) L 04/24/19 10:35 RBC 4.26 M/mm3 (3.60-5.2) 04/24/19 10:35 Hgb 12.3 GM/dL (10.7-15.3) 04/24/19 10:35 Hct 37.4 % (32.4-45.2) 04/24/19 10:35 MCV 87.9 fl (80-96) 04/24/19 10:35 MCH 28.9 pg (25.7-33.7) 04/24/19 10:35 MCHC 32.8 g/dl (32.0-36.0) 04/24/19 10:35 RDW 15.8 % (11.6-15.6) H 04/24/19 10:35 Plt Count 77 K/MM3 (134-434) L 04/24/19 10:35 MPV 10.2 fl (7.5-11.1) 04/24/19 10:35 Sodium 137 mmol/L (136-145) 04/24/19 10:35 Potassium 4.1 mmol/L (3.5-5.1) 04/24/19 10:35 Chloride 106 mmol/L (98-107) 04/24/19 10:35 Carbon Dioxide 26 mmol/L (21-32) 04/24/19 10:35 Anion Gap 4 MMOL/L (8-16) L 04/24/19 10:35 BUN 10.9 mg/dL (7-18) 04/24/19 10:35 Creatinine 0.8 mg/dL (0.55-1.3) 04/24/19 10:35 Est GFR (CKD-EPI)AfAm 104.65 04/24/19 10:35 Est GFR (CKD-EPI)NonAf 90.30 04/24/19 10:35 Random Glucose 90 mg/dL (74-106) 04/24/19 10:35 Calcium 8.3 mg/dL (8.5-10.1) L 04/24/19 10:35 Total Bilirubin 0.9 mg/dL (0.2-1) 04/24/19 10:35 AST 16 U/L (15-37) 04/24/19 10:35 ALT 17 U/L (13-61) 04/24/19 10:35 Alkaline Phosphatase 68 U/L (45-117) 04/24/19 10:35 Total Protein 7.4 g/dl (6.4-8.2) 04/24/19 10:35 Albumin 3.9 g/dl (3.4-5.0) 04/24/19 10:35 POC Urine HCG, Qual Negative 04/24/19 10:00 RPR Titer Nonreactive (NONREACTIVE) 04/24/19 10:35 Labs noted. Assessment: 04/27/19 12:19 AOX3, in no acute respiratory distress. Full ROM, ambulating in the unit. Withdrawal symptoms. Plan: continue detox.
[2019-04-27] MEDS: METHOCARBAMOL 500 MG TABLET PO PRN (13:18)
[2019-04-27] MEDS: hydrOXYzine PAMOATE 25 MG CAPSULE (FP) PO PRN ×2 (13:18→23:12)
[2019-04-27] MEDS: ACETAMINOPHEN 325 MG TABLET (FP) PO PRN (13:19)
[2019-04-27] MEDS ORDERED: traZODone HCL 100 MG TABLET (FP) PO SCH (22:00)
[2019-04-27] MEDS ORDERED: MELATONIN 5 MG TABLETS PO PRN (23:02)
[2019-04-27] MEDS: THIAMINE HCL 100 MG TABLET (FP) PO SCH (23:14)
[2019-04-28] MEDS ORDERED: METHADONE HCL 10 MG TABLET (FOR DETOX USE ONLY) PO ONE (10:00)
--- NOTE | 2019-04-28 10:24 | PN ---
[facility] Progress Note Note: Psychiatry Attending's note : Met with the patient. Ms Joseph approached personal lines underwriter with complaint of refractory insomnia. She reports that trazodone is not effective. Wants seroquel at a higher dose. Patient is reminded of the potential for metabolic syndrome, sedation and abnormal movements. She insists on resuming seroquel with full knowledge of risks. Seroquel 25 mg po daily + 100 mg po hs. Ms Joseph has also requested script for a 30 day supply of seroquel (she is entering inpatient rehabilitation after detoxification).
[2019-04-28] MEDS: NICOTINE 21 MG/24 HOURS TOPICAL PATCH TD SCH (10:28)
[2019-04-28] MEDS: PRENATAL VITAMINS W/ FOLIC ACID TABLET (FP) PO SCH (10:28)
[2019-04-28] MEDS: hydrOXYzine PAMOATE 25 MG CAPSULE (FP) PO PRN (10:30)
[2019-04-28] MEDS ORDERED: QUEtiapine FUMARATE 25 MG TABLET (FP) PO SCH (10:30)
--- NOTE | 2019-04-28 11:21 | PN ---
[facility] CIWA - CIWA Score Nausea/Vomitin-No Nausea/No Vomiting Muscle Tremors: None Anxiety: 2 Agitation: 0-Normal Activity Paroxysmal Sweats: 2 Orientation: 0-Oriented Tacttile Disturbances: 0-None Auditory Disturbances: 0-None Visual Disturbances: 0-None Headache: 0-None Present CIWA-Ar Total Score: 4 S COWS - Scale Resting Pulse: 0= [place] 80 or Below Sweatin= No chills or Flushing Restless Observation: 0= Sits Still Pupil Size: 0= Normal to Room Light Bone or Joint Aches: 1= Mild Discomfort Runny Nose/ Eye Tearin= None GI Upset > 30mins: 0= None Tremor Observation of Outstretched Hands: 0= None Yawning Observation: 0= None Anxiety or Irritability: 2=Irritable/Anxious Goose Flesh Skin: 0=Smooth Skin COWS Score: 3 [facility] Progress Note (SOAP) Subjective: c/o mild withdrawal symptoms. Objective: 04/28/19 11:20 Vital Signs - 24 hr 04/27/19 04/27/19 04/27/19 13:35 17:11 21:52 Temperature 97.1 F L 98.6 F 98.0 F Pulse Rate 82 79 69 Respiratory 18 16 16 Rate Blood Pressure 110/83 132/72 109/80 04/28/19 04/28/19 04/28/19 03:30 06:46 09:20 Temperature 98.0 F 97.1 F L Pulse Rate 64 75 Respiratory 18 18 18 Rate Blood Pressure 99/62 116/75 Assessment: 04/28/19 11:20 AOx3, in no acute respiratory distress. Full rom, ambulating in the unit. Mild Withdrawal symptoms. For d/c tomorrow. Plan: continue detox. D/C in AM.
[2019-04-28] MEDS ORDERED: QUEtiapine FUMARATE 100 MG TABLET (FP) PO SCH (22:00)
[2019-04-28] MEDS: THIAMINE HCL 100 MG TABLET (FP) PO SCH (22:13)
[2019-04-29] MEDS ORDERED: METHADONE HCL 5 MG TABLET (FOR DETOX USE ONLY) PO ONE (06:00)
[2019-04-29 06:33] VITALS: BP 98/60; PULSE 75; TEMP 97.7
--- NOTE | 2019-04-29 12:43 | DS ---
[facility] Detox Discharge Summary Admission Date: 04/24/19 Discharge Date: 04/29/19 - History Present History: Opioid Dependence, Sedative Dependence Additional Comments: 43 years old female admitted on 04/24/19 for benzo and opiate withdrawal sx management treated with valium and methadone detox regimens patient tolerated well alert oriented x 3 respiratory clear lungs bilaterally on auscultation extremities full range of motion skin warm and dry - Physical Exam Results Vital Signs: Vital Signs Temperature 97.7 F 04/29/19 06:33 Pulse Rate 75 04/29/19 06:33 Respiratory Rate 18 04/29/19 06:33 Blood Pressure 98/60 04/29/19 06:33 O2 Sat by Pulse Oximetry (%) Pertinent Admission Physical Exam Findings: benzo and opiate withdrawal Laboratory Last Values WBC 2.7 K/mm3 (4.0-10.0) L 04/24/19 10:35 RBC 4.26 M/mm3 (3.60-5.2) 04/24/19 10:35 Hgb 12.3 GM/dL (10.7-15.3) 04/24/19 10:35 Hct 37.4 % (32.4-45.2) 04/24/19 10:35 MCV 87.9 fl (80-96) 04/24/19 10:35 MCH 28.9 pg (25.7-33.7) 04/24/19 10:35 MCHC 32.8 g/dl (32.0-36.0) 04/24/19 10:35 RDW 15.8 % (11.6-15.6) H 04/24/19 10:35 Plt Count 77 K/MM3 (134-434) L 04/24/19 10:35 MPV 10.2 fl (7.5-11.1) 04/24/19 10:35 Sodium 137 mmol/L (136-145) 04/24/19 10:35 Potassium 4.1 mmol/L (3.5-5.1) 04/24/19 10:35 Chloride 106 mmol/L (98-107) 04/24/19 10:35 Carbon Dioxide 26 mmol/L (21-32) 04/24/19 10:35 Anion Gap 4 MMOL/L (8-16) L 04/24/19 10:35 BUN 10.9 mg/dL (7-18) 04/24/19 10:35 Creatinine 0.8 mg/dL (0.55-1.3) 04/24/19 10:35 Est GFR (CKD-EPI)AfAm 104.65 04/24/19 10:35 Est GFR (CKD-EPI)NonAf 90.30 04/24/19 10:35 Random Glucose 90 mg/dL (74-106) 04/24/19 10:35 Calcium 8.3 mg/dL (8.5-10.1) L 04/24/19 10:35 Total Bilirubin 0.9 mg/dL (0.2-1) 04/24/19 10:35 AST 16 U/L (15-37) 04/24/19 10:35 ALT 17 U/L (13-61) 04/24/19 10:35 Alkaline Phosphatase 68 U/L (45-117) 04/24/19 10:35 Total Protein 7.4 g/dl (6.4-8.2) 04/24/19 10:35 Albumin 3.9 g/dl (3.4-5.0) 04/24/19 10:35 POC Urine HCG, Qual Negative 04/24/19 10:00 RPR Titer Nonreactive (NONREACTIVE) 04/24/19 10:35 lab noted low plt low wbc asymptomatic patient agrees to seek counts include 234 beds at the [facility] service for low wbc and low plt follow up - Treatment Hospital Course: Detox Protocol Followed, Detoxed Safely, Responded well, Discharged Condition Good, Rehab Referral Accepted Patient has Accepted a Rehab Referral to: [facility] - Medication Discharge Medications: Ambulatory Orders Quetiapine Fumarate [Seroquel -] 100 mg PO HS #30 tablet 04/28/19 - Diagnosis (1) Opioid dependence with withdrawal Status: Acute (2) Sedative, hypnotic or anxiolytic abuse, uncomplicated Status: Acute (3) Nicotine dependence Status: Acute Qualifiers: Nicotine product type: cigarettes Substance use status: in withdrawal Qualified Code(s): F17.213 - Nicotine dependence, cigarettes, with withdrawal (4) Substance induced mood disorder Status: Suspected - AMA Did Patient Leave Against Medical Advice: No CIWA Score - CIWA Score Nausea/Vomitin-No Nausea/No Vomiting Muscle Tremors: None Anxiety: 1-Mildly Anxious Agitation: 0-Normal Activity Paroxysmal Sweats: 1-Minimal Palms Moist Orientation: 0-Oriented Tacttile Disturbances: 0-None Auditory Disturbances: 0-None Visual Disturbances: 0-None Headache: 0-None Present CIWA-Ar Total Score: 2 COWS (PN) - Opiate Withdrawal Resting Pulse: 0= [place] 80 or Below Sweatin= No chills or Flushing Restless Observation: 0= Sits Still Pupil Size: 0= Normal to Room Light Bone or Joint Aches: 0= None Runny Nose/ Eye Tearin= None GI Upset > 30mins: 0= None Tremor Observation of Outstretched Hands: 1= Tremor [place], Not Seen Yawning Observation: 0= None Anxiety or Irritability: 1=Feels Anxious/Irritable Goose Flesh Skin: 0=Smooth Skin COWS Score: 2
== END 2019-04-29 08:53 | disposition home or self-care (01) | DRG 773 ==
LOC: YASAS 09:09 → Y3N 10:37
PROVIDERS: ADMIT Allergy & Immunology; ATTEND Allergy & Immunology
PROC: HZ2ZZZZ Detoxification Services for Substance Abuse Treatment (ICD-10-PCS; principal; 2019-04-24)
DX: F11.23 Opioid dependence with withdrawal (principal); F13.230 Sedative, hypnotic or anxiolytic dependence with withdrawal, uncomplicated; F17.213 Nicotine dependence, cigarettes, with withdrawal; F19.24 Other psychoactive substance dependence with psychoactive substance-induced mood disorder; G47.00 Insomnia, unspecified; E86.0 Dehydration; Z88.8 Allergy status to other drugs, medicaments and biological substances; Z91.19 Patient's noncompliance with other medical treatment and regimen; Z86.19 Personal history of other infectious and parasitic diseases
CPT/HCPCS: 36415; 80053; 81025; 85027; 86593; J0735; Q0162

== ENCOUNTER 2019-06-16 10:03 | Inpatient (IN) | payer OTHER ==
--- NOTE | 2019-06-16 12:05 | BHS.RME ---
Substance Use & Tx History - Substance Use History Opiates (Heroin) Substance amount: heroin 25 to 20 bags Frequency of use: Daily Substance route: Injection (ex: intravenous or skin popping) Date of Last Use: 06/16/19 Benzodiazepines Substance amount: xanax 4 mgs Frequency of use: Daily Substance route: Oral Date of Last Use: 06/14/19 klonopin Frequency of use: Daily Substance route: Oral Date of Last Use: 06/16/19 - Last Treatment Date of last treatment: 04/24/19 to 04/29/19 Where was last treatment: Detox ([facility]) Physical/Psych/Mental Status - Behavior General Behavior: Increased activity (restlessness, agitation) Eye Contact: Normal - Thinking Thought Processes: Logical Thought content: Future oriented - Physical Health Problems Is patient presently having any pain?: No Does patient presently have any injuries (include location): No Does patient currently have a fever: No COWS - Scale Resting Pulse: 0= [place] 80 or Below Sweatin= Chills/Flushing Restless Observation: 1= Difficult to Sit Still Pupil Size: 1= Pupils >than Normal Bone or Joint Aches: 2= Severe Diffuse Aches Runny Nose/ Eye Tearin= Runny Nose/Eyes GI Upset > 30mins: 2= Nausea/Diarrhea Tremor Observation: 2= Slight Tremor Visible Yawning Observation: 2= >3x During Session Anxiety or Irritability: 2=Irritable/Anxious Goose Flesh Skin: 0=Smooth Skin COWS Score: 15 CIWA Nausea/Vomitin Muscle Tremors: 2 Anxiety: 3 Agitation: 3 Paroxysmal Sweats: No Perspiration Orientation: 0-Oriented Tacttile Disturbances: 2-Mild Itch/Numbness/Burn Auditory Disturbances: 0-None Visual Disturbances: 0-None Headache: 2-Mild CIWA-Ar Total Score: 14
[2019-06-16 12:41] VITALS: BMI 30.5
--- NOTE | 2019-06-16 13:21 | HP ---
"COWS - Scale Resting Pulse: 0= [place] 80 or Below Sweatin= Chills/Flushing Restless Observation: 1= Difficult to Sit Still Pupil Size: 1= Pupils >than Normal Bone or Joint Aches: 2= Severe Diffuse Aches Runny Nose/ Eye Tearin= Runny Nose/Eyes GI Upset > 30mins: 2= Nausea/Diarrhea Tremor Observation: 2= Slight Tremor Visible Yawning Observation: 2= >3x During Session Anxiety or Irritability: 2=Irritable/Anxious Goose Flesh Skin: 0=Smooth Skin COWS Score: 15 CIWA Score Nausea/Vomitin Muscle Tremors: 3 Anxiety: 3 Agitation: 3 Paroxysmal Sweats: No Perspiration Orientation: 0-Oriented Tacttile Disturbances: 2-Mild Itch/Numbness/Burn Auditory Disturbances: 0-None Visual Disturbances: 0-None Headache: 2-Mild CIWA-Ar Total Score: 16 - Admission Criteria OASAS Guidelines: Admission for Medically Managed Detox: Requires at least one of the followin. CIWA greater than 12 2. Seizures within the past 24 hours 3. Delirium tremens within the past 24 hours 4. Hallucinations within the past 24 hours 5. Acute intervention needed for co occurring medical disorder 6. Acute intervention needed for co occurring psychiatric disorder 7. Severe withdrawal that cannot be handled at a lower level of care (continued vomiting, continued diarrhea, abnormal vital signs) requiring intravenous medication and/or fluids 8. Patient presents the following: CIWA greater than 12 Admission Criteria Met: Admission criteria met Admitting History and Physical - Admission History Source: Patient Limitations to Obtaining History: No Limitations - Past Medical History ...LMP: 04/23/19 Psych: Yes: Addictions - Past Surgical History Past Surgical History: Yes: Tubal Ligation (in 1996) - Smoking History Smoking history: Current every day smoker Have you smoked in the past 12 months: Yes Aproximately how many cigarettes per day: 10 - Alcohol/Substance Use Hx Alcohol Use: No History of Substance Use: reports: Heroin, Tranquilizers - Social History Usual Living Arrangement: Yes: Alone ADL: Independent Occupation: unemployed History of Recent Travel: No Admission ROS BHS - HPI Chief Complaint: I have to stop, my dad's is in June and I have to be ok when I go there Allergies/Adverse Reactions: Allergies Allergy/AdvReac Type Severity Reaction Status Date / Time buprenorphine [From Suboxone] Allergy Intermediate Rash Verified 06/16/19 12:33 naloxone [From Suboxone] Allergy Intermediate Rash Verified 06/16/19 12:33 History of Present Illness: 44 yo woman here for detox from benzodiazepines and opiates. Last here for detox. States history of methadone program - off for 14 months (in [place], was on it for 8 years up to 220mg) - she relapsed after going off it. Tried suboxone but has allergic reaction ('face swell, rushed to ED'). She lives alone, in apartment, not working nor on disability. Patient denies seizures - tried to overdose once. She uses intravenously - no abscess noted. No recent emergency room visits. [facility] Search Terms: faviola tim, 1975 Search Date: 06/16/2019 01:22:18 PM The Drug Utilization Report below displays all of the controlled substance prescriptions, if any, that your patient has filled in the last twelve months. The information displayed on this report is compiled from pharmacy submissions to the Department, and accurately reflects the information as submitted by the pharmacies. This report was requested by: Kayce Hawley | Reference #: [id number] There are no results for the search terms that you entered. Exam Limitations: No Limitations - Ebola screening Have you traveled outside of the country in the last 21 days: No Have you had contact with anyone from an Ebola affected area: No Have you been sick,other than usual withdrawal symptoms: No Do you have a fever: No - Review of Systems Constitutional: Loss of Appetite, Malaise, Weakness EENT: reports: Nose Congestion Respiratory: reports: No Symptoms reported Cardiac: reports: No Symptoms Reported GI: reports: Poor Appetite, Indigestion, Abdominal cramping Musculoskeletal: reports: Back Pain, Muscle Pain Integumentary: reports: Flushing Neuro: reports: Headache, Numbness, Tremors Endocrine: reports: No Symptoms Reported Hematology: reports: No Symptoms Reported Psychiatric: reports: Judgement Intact, Mood/Affect Appropiate, Anxious Other Systems: Reviewed and Negative Patient History - Patient Medical History Hx Anemia: No Hx Asthma: No Hx Chronic Obstructive Pulmonary Disease (COPD): No Hx Cancer: No Hx Cardiac Disorders: No Hx Congestive Heart Failure: No Hx Hypertension: No Hx Hypercholesterolemia: No Hx Pacemaker: No HX Cerebrovascular Accident: No Hx Seizures: No Hx Dementia: No Hx Diabetes: No Hx Gastrointestinal Disorders: No Hx Liver Disease: No Hx Genitourinary Disorders: No Hx Sexually Transmitted Disorders: No Hx Renal Disease (ESRD): No Hx Thyroid Disease: No Hx Human Immunodeficiency Virus (HIV): No (last 2018 negative) Hx Hepatitis C: Yes (treated) Hx Depression: Yes (PTSD after ) Hx Suicide Attempt: Yes (TRIED TO OVERDOSE WITH HEROIN) Hx Bipolar Disorder: No Hx Schizophrenia: No - Patient Surgical History Past Surgical History: Yes Hx Neurologic Surgery: No Hx Cataract Extraction: No Hx Cardiac Surgery: No Hx Lung Surgery: No Hx Breast Surgery: No Hx Breast Biopsy: No Hx Abdominal Surgery: No Hx Appendectomy: No Hx Cholecystectomy: No Hx Genitourinary Surgery: Yes (tubal ligation) Hx Section: No Hx Orthopedic Surgery: No Other Surgical History: t Anesthesia Reaction: No - PPD History Previous Implant?: Yes Documented Results: Negative w/proof Implanted On Prior [facility] Admission?: Yes Date: 04/02/19 Results: 0 mm PPD to be Administered?: No - Reproductive History Patient is a Female of Child Bearing Age (11 -55 yrs old): Yes Last Menstrual Period: 04/23/19 - Smoking Cessation Smoking history: Current every day smoker Have you smoked in the past 12 months: Yes Aproximately how many cigarettes per day: 10 Hx Chewing Tobacco Use: No Initiated information on smoking cessation: Yes 'Breaking Loose' booklet given: 06/16/19 (give on floor) - Substances abused Other Other (specify): FENTANYL Substance route: Injection Frequency: Daily Amount used: 15-20 BAGS Age of first use: 43 Date of last use: 06/10/19 Heroin Substance route: Injection Frequency: Daily Amount used: 25 BAGS Age of first use: 34 Date of last use: 06/16/19 Alprazolam (Xanax) Substance route: Oral Frequency: 3-6 times per week Amount used: 6 MG Age of first use: 38 Date of last use: 06/13/19 Benzodiazepine (Klonopin) Substance route: Oral Frequency: 3-6 times per week Amount used: 8-10MG Age of first use: 38 Date of last use: 06/15/19 Admission Physical Exam BHS - Vital Signs Vital Signs: Vital Signs - 24 hr 06/16/19 06/16/19 12:35 13:15 Temperature 97.5 F L 97.5 F L Pulse Rate 79 79 Respiratory 20 20 Rate Blood Pressure 139/88 139/88 - Physical General Appearance: Yes: Nourished, Appropriately Dressed, Moderate Distress, Tremorous, Anxious, Other (teary) HEENTM: Yes: EOMI, Hearing grossly Normal, Normocephalic, Normal Voice, Pharynx Normal, Nasal Congestion, Rhinorrhea Respiratory: Yes: Normal Breath Sounds, No Respiratory Distress Neck: Yes: No masses,lesions,Nodules Breast: Yes: Breast Exam Deferred Cardiology: Yes: Regular Rhythm, Regular Rate Abdominal: Yes: Soft Genitourinary: Yes: Hesitency Back: Yes: Normal Inspection Musculoskeletal: Yes: full range of Motion, Gait Steady Extremities: Yes: Normal Inspection, Normal Range of Motion, Tremors Neurological: Yes: Fully Oriented, Alert, Normal Mood/Affect, Normal Response, Numbness Integumentary: Yes: Normal Color, Warm, Track Harris (both feet - no abscess) Lymphatic: Yes: Within Normal Limits - Diagnostic (1) Sedative, hypnotic or anxiolytic abuse, uncomplicated Current Visit: Yes Status: Acute (2) Opioid dependence with withdrawal Current Visit: Yes Status: Acute (3) IVDU (intravenous drug user) Current Visit: Yes Status: Acute (4) Nicotine dependence Current Visit: Yes Status: Acute Qualifiers: Nicotine product type: cigarettes Substance use status: in withdrawal Qualified Code(s): F17.213 - Nicotine dependence, cigarettes, with withdrawal (5) Insomnia Current Visit: Yes Status: Chronic Qualifiers: Insomnia type: unspecified Qualified Code(s): G47.00 - Insomnia, unspecified Cleared for Admission [facility] - Detox or Rehab [facility] Level of Care: Medically Managed Detox Regimen/Protocol: Methadone/Valium Breathalyzer - Breathalyzer Breathalyzer: 0 Urine Drug Screen - Test Device Lot number: [id number] Expiration date: 03/26/21 - Control Is test valid?: Yes - Results Drug screen NEGATIVE: No Urine drug screen results: FEN-Fentanyl, MOP-Opiates, BZO-Benzodiazepines Inpatient Rehab Admission - Rehab Decision to Admit Inpatient rehab admission?: No"
[2019-06-16] MEDS ORDERED: MAGNESIUM HYDROX 2400MG/30ML ORAL SUSPENSION 30 ML CUP PO PRN (13:33)
[2019-06-16] MEDS ORDERED: ACETAMINOPHEN 325 MG TABLET (FP) PO PRN ×2 (13:33)
[2019-06-16] MEDS ORDERED: cloNIDine HCL 0.1 MG TABLET PO PRN (13:33)
[2019-06-16] MEDS ORDERED: BISMUTH SUBSALICYLATE 524 MG/30 ML UD PO PRN (13:33)
[2019-06-16] MEDS ORDERED: MAG HYDROX/AL HYDROX/SIMETH 30 ML UNIT-DOSE CUP PO PRN (13:33)
[2019-06-16] MEDS ORDERED: diazePAM 5 MG TABLET PO ONE (13:33)
[2019-06-16] MEDS ORDERED: MAGNESIUM CITRATE 300 ML BOTTLE PO PRN (13:33)
[2019-06-16] MEDS ORDERED: METHOCARBAMOL 500 MG TABLET PO PRN (13:33)
[2019-06-16] MEDS ORDERED: MENTHOL/PHENOL 1 EACH UD MM PRN (13:33)
[2019-06-16] MEDS ORDERED: MELATONIN 5 MG TABLETS PO PRN (13:33)
[2019-06-16] MEDS ORDERED: IBUPROFEN 400 MG TABLET (FP) PO PRN (13:33)
[2019-06-16] MEDS ORDERED: METHADONE HCL 10 MG TABLET (FOR DETOX USE ONLY) PO ONE (14:00)
[2019-06-16] MEDS: diazePAM 5 MG TABLET PO SCH ×2 (14:05→22:08)
[2019-06-16] MEDS: NICOTINE 21 MG/24 HOURS TOPICAL PATCH TD SCH (14:06)
--- NOTE | 2019-06-16 15:06 | CONSULT ---
[facility] Psychiatric Consult - Data Date of interview: 06/16/19 Admission source: [facility] Identifying data: Second admission to [address] [place] [address] for this 44 y/o female, self-referred for detoxification. JONAH issues : opioid, xanax, nicotine. Patient is , mother of two, domiciled, unemployed and currently supported on " hustling " + gifts from relatives. Substance Abuse History: Discusssed with the patient. Details are concordant with current [facility] report as follows : Smoking history: Current every day smoker. Have you smoked in the past 12 months: Yes. Aproximately how many cigarettes per day: 10. Hx Chewing Tobacco Use: No. Initiated information on smoking cessation: Yes. 'Breaking Loose' booklet given: 06/16/19 (give on floor). - Substances abused. Other. Other (specify): FENTANYL. Substance route: Injection. Frequency: Daily. Amount used: 15-20 BAGS. Age of first use: 43. Date of last use: 06/10/19. Heroin. Substance route: Injection. Frequency : Daily. Amount used: 25 BAGS. Age of first use: 34. Date of last use: . Alprazolam (Xanax). Substance route: Oral. Frequency: 3-6 times per week. Amount used: 6 MG. Age of first use: 38. Date of last use: 06/13/19. * * Benzodiazepine (Klonopin). Substance route: Oral. Frequency: 3-6 times per week. Amount used: 8-10MG. Age of first use: 38. Date of last use: 06/15/19 Medical History: Hepatitis C (treated) and history of tubal ligation. Psychiatric History: No changes in longitudinal history since encounter of April 2019. History of one psychiatric hospitalization ([facility]) in 2014. Patient endorses the diagnoses of MDD, Anxiety Disorder and PTSD. Ms Joseph maintains, in this report, that she has stopped seeing her psychiatrist about two years ago (not in treatment prior to this [facility] visit). Patient did not adhere to her follow-up recommendations after discharge from [facility]. Noted past history of trials with various psychotropic medications ( quetiapine, wellbutrin, mirtazapine, aripriprazole, clonazepam and other unnamed molecules). Patient denies history of suicide attempts. Physical/Sexual Abuse/Trauma History: History of severe traumas : of (10 years ago) + recent of biological father (two days after discharge from [address] [place] [address] in April 2019). Additional Comment: Urine drug screen results: FEN-Fentanyl, MOP-Opiates, BZO- Benzodiazepines. Noted. Mental Status Exam - Mental Status Exam Alert and Oriented to: Time, Place, Person Cognitive Function: Good Patient Appearance: Well Groomed Mood: Anxious, Hopeful Affect: Appropriate, Normal Range Patient Behavior: Fatigued, Appropriate, Cooperative Speech Pattern: Clear, Appropriate Voice Loudness: Normal Thought Process: Intact, Goal Oriented Thought Disorder: Not Present Hallucinations: Denies Suicidal Ideation: Denies Homicidal Ideation: Denies Insight/Judgement: Poor Sleep: Poorly, Difficulty falling asleep (wants seroquel) Appetite: Good Gait/Station: Normal Psychiatric Findings - Problem List ([place] 1, 2,3) (1) Opioid dependence with withdrawal Current Visit: Yes Status: Acute (2) Sedative, hypnotic or anxiolytic abuse, uncomplicated Current Visit: Yes Status: Chronic (3) Nicotine dependence Current Visit: Yes Status: Chronic Qualifiers: Nicotine product type: cigarettes Substance use status: in withdrawal Qualified Code(s): F17.213 - Nicotine dependence, cigarettes, with withdrawal (4) Substance induced mood disorder Current Visit: Yes Status: Chronic (5) History of depression Current Visit: Yes Status: Chronic Comment: Non compliant with OPD care. (6) Insomnia Current Visit: Yes Status: Chronic Qualifiers: Insomnia type: unspecified Qualified Code(s): G47.00 - Insomnia, unspecified (7) Non-compliance Current Visit: Yes Status: Chronic - Initial Treatment Plan Initial Treatment Plan: Interview is conducted in the presence of a vaccinator, nurse Earline Hernandez (with verbal permission from the patient). Psychoeducation. Sleep hygiene. Detoxification in progress. Support and empathy. NA meetings. Seroquel 50 mg po hs (requested by patient). Side effects/benefits discussed in this session. Consent (verbal) obtained from the patient. Observation.
[2019-06-16] MEDS ORDERED: QUEtiapine FUMARATE 100 MG TABLET (FP) PO ONE (22:00)
[2019-06-16] MEDS: QUEtiapine FUMARATE 100 MG TABLET (FP) PO SCH (22:08)
[2019-06-16] MEDS: THIAMINE HCL 100 MG TABLET (FP) PO SCH (22:09)
[2019-06-17] MEDS: diazePAM 5 MG TABLET PO SCH ×3 (05:39→22:55)
[2019-06-17] MEDS ORDERED: ACETAMINOPHEN 325 MG TABLET (FP) PO ONE (08:49)
[2019-06-17] MEDS ORDERED: LOPERAMIDE HCL 2 MG CAPSULE PO ONE (08:50)
[2019-06-17] MEDS ORDERED: ONDANSETRON *ODT* 4 MG TABLET SL ONE (08:51)
--- NOTE | 2019-06-17 08:55 | PN ---
[facility] CIWA - CIWA Score Nausea/Vomitin-Mild Nausea/No Vomiting Muscle Tremors: 4-Moderate,w/Arms Extend Anxiety: 4-Mod. Anxious/Guarded Agitation: 1-Slight > Activity Paroxysmal Sweats: 2 Orientation: 0-Oriented Tacttile Disturbances: 0-None Auditory Disturbances: 0-None Visual Disturbances: 0-None Headache: 2-Mild CIWA-Ar Total Score: 14 [facility] COWS - Scale Resting Pulse: 0= [place] 80 or Below Sweatin= Chills/Flushing Restless Observation: 0= Sits Still Pupil Size: 1= Pupils >than Normal Bone or Joint Aches: 2= Severe Diffuse Aches Runny Nose/ Eye Tearin= Nasal Congestion GI Upset > 30mins: 2= Nausea/Diarrhea Tremor Observation of Outstretched Hands: 2= Slight Tremor Visible Yawning Observation: 0= None Anxiety or Irritability: 2=Irritable/Anxious Goose Flesh Skin: 3=Piloerection COWS Score: 14 [facility] Progress Note (SOAP) Subjective: 44 years old female admitted on 06/16/19 for benzo and opiate withdrawal sx management treating with valium and methadone detox regiments general body aches the back and joints tylenal 650 mg x 1 po loose stool x 1 and feeling nausea after breakfast imodium 8 mg po x 1 and zofran 8 mg sl x 1 encourage oral fluid and resting Objective: 06/17/19 08:54 Vital Signs Temperature 97.1 F L 06/17/19 07:28 Pulse Rate 74 06/17/19 07:28 Respiratory Rate 18 06/17/19 07:28 Blood Pressure 106/74 06/17/19 07:28 O2 Sat by Pulse Oximetry (%) 06/17/19 08:54 lab pending Assessment: 06/17/19 08:54 benzo and opiate withdrawal Plan: valium and methadone regiments
[2019-06-17] MEDS ORDERED: METHADONE (DETOX) 20 MG, METHADONE (DETOX) 5 MG PO ONE (10:00)
[2019-06-17] MEDS ORDERED: METHADONE HCL 10 MG TABLET (FOR DETOX USE ONLY) ONE (10:35)
[2019-06-17] MEDS ORDERED: METHADONE HCL 5 MG TABLET (FOR DETOX USE ONLY) ONE (10:36)
[2019-06-17] MEDS: diazePAM 5 MG TABLET PO PRN ×2 (10:37→17:06)
[2019-06-17] MEDS: NICOTINE 21 MG/24 HOURS TOPICAL PATCH TD SCH (10:40)
[2019-06-17] MEDS: PRENATAL VITAMINS W/ FOLIC ACID TABLET (FP) PO SCH (10:40)
[2019-06-17 11:50] LABS: HEMATOCRIT 34.2 % (32.4-45.2); HEMOGLOBIN 11.5 GM/dL (10.7-15.3); MCH 29.6 pg (25.7-33.7); MCHC 33.6 g/dl (32.0-36.0); MEAN CELL VOLUME 87.9 fl (80-96); MEAN PLT VOLUME 10.8 fl (7.5-11.1); PLATELET COUNT 76 K/MM3 (134-434); RBC 3.89 M/mm3 (3.60-5.2); RDW 14.7 % (11.6-15.6); WHITE BLOOD COUNT 2.1 K/mm3 (4.0-10.0)
[2019-06-17 11:58] LABS: ALBUMIN 3.6 g/dl (3.4-5.0); BILIRUBIN,TOTAL 0.9 mg/dL (0.2-1); BLOOD UREA NITROGEN 14.1 mg/dL (7-18); CALCIUM 8.5 mg/dL (8.5-10.1); CREATININE 0.7 mg/dL (0.55-1.3); POTASSIUM 3.7 mmol/L (3.5-5.1)
[2019-06-17] MEDS: THIAMINE HCL 100 MG TABLET (FP) PO SCH (22:55)
[2019-06-17] MEDS: QUEtiapine FUMARATE 100 MG TABLET (FP) PO SCH (22:55)
[2019-06-18] MEDS: diazePAM 5 MG TABLET PO SCH ×2 (07:21→17:32)
[2019-06-18] MEDS ORDERED: TRIMETHOBENZAMIDE HCL 200MG/2ML INJ IM ONE (08:30)
[2019-06-18] MEDS ORDERED: LOPERAMIDE HCL 2 MG CAPSULE PO ONE (08:31)
[2019-06-18] MEDS ORDERED: LOPERAMIDE HCL 2 MG CAPSULE PO PRN (08:35)
--- NOTE | 2019-06-18 08:36 | PN ---
S CIWA - CIWA Score Nausea/Vomitin Muscle Tremors: 1-None Visible, but [place] Anxiety: 2 Agitation: 0-Normal Activity Paroxysmal Sweats: 2 Orientation: 0-Oriented Tacttile Disturbances: 0-None Auditory Disturbances: 0-None Visual Disturbances: 1-Very Mild Sensitivity Headache: 0-None Present CIWA-Ar Total Score: 9 S COWS - Scale Resting Pulse: 0= [place] 80 or Below Sweatin= Chills/Flushing Restless Observation: 0= Sits Still Pupil Size: 1= Pupils >than Normal Bone or Joint Aches: 1= Mild Discomfort Runny Nose/ Eye Tearin= None GI Upset > 30mins: 3= Vomiting/Diarrhea Tremor Observation of Outstretched Hands: 2= Slight Tremor Visible Yawning Observation: 0= None Anxiety or Irritability: 1=Feels Anxious/Irritable Goose Flesh Skin: 0=Smooth Skin COWS Score: 9 S Progress Note (SOAP) Subjective: 44 years old female admitted on 06/16/19 for benzo and opiate withdrawal sx management treating with valium and methadone detox regiments vomited x 1 with loose stool tigan 200mg IM x 1 imodium 4 mg po x 1 imodium 4 mg po q6h prn discontinue pepto patient is alert oriented x 3 social with peers in front of day room by the TV good skin turgor oral mucosa moist Objective: 06/18/19 08:39 Vital Signs Temperature 98.4 F 06/18/19 05:23 Pulse Rate 69 06/18/19 05:23 Respiratory Rate 18 06/18/19 05:23 Blood Pressure 98/58 L 06/18/19 05:23 O2 Sat by Pulse Oximetry (%) Laboratory Last Values WBC 2.1 K/mm3 (4.0-10.0) L 06/17/19 07:25 RBC 3.89 M/mm3 (3.60-5.2) 06/17/19 07:25 Hgb 11.5 GM/dL (10.7-15.3) 06/17/19 07:25 Hct 34.2 % (32.4-45.2) 06/17/19 07:25 MCV 87.9 fl (80-96) 06/17/19 07:25 MCH 29.6 pg (25.7-33.7) 06/17/19 07:25 MCHC 33.6 g/dl (32.0-36.0) 06/17/19 07:25 RDW 14.7 % (11.6-15.6) 06/17/19 07:25 Plt Count 76 K/MM3 (134-434) L 06/17/19 07:25 MPV 10.8 fl (7.5-11.1) 06/17/19 07:25 Sodium 139 mmol/L (136-145) 06/17/19 07:25 Potassium 3.7 mmol/L (3.5-5.1) 06/17/19 07:25 Chloride 108 mmol/L (98-107) H 06/17/19 07:25 Carbon Dioxide 26 mmol/L (21-32) 06/17/19 07:25 Anion Gap 5 MMOL/L (8-16) L 06/17/19 07:25 BUN 14.1 mg/dL (7-18) 06/17/19 07:25 Creatinine 0.7 mg/dL (0.55-1.3) 06/17/19 07:25 Est GFR (CKD-EPI)AfAm 122.13 06/17/19 07:25 Est GFR (CKD-EPI)NonAf 105.37 06/17/19 07:25 Random Glucose 89 mg/dL (74-106) 06/17/19 07:25 Calcium 8.5 mg/dL (8.5-10.1) 06/17/19 07:25 Total Bilirubin 0.9 mg/dL (0.2-1) 06/17/19 07:25 AST 24 U/L (15-37) 06/17/19 07:25 ALT 19 U/L (13-61) 06/17/19 07:25 Alkaline Phosphatase 66 U/L (45-117) 06/17/19 07:25 Total Protein 7.0 g/dl (6.4-8.2) 06/17/19 07:25 Albumin 3.6 g/dl (3.4-5.0) 06/17/19 07:25 RPR Titer Nonreactive (NONREACTIVE) 06/17/19 07:25 06/18/19 08:40 long history of low wbc low plt discontinue motrin Assessment: 06/18/19 08:41 benzo and opiate withdrawal 06/18/19 08:41 low wbc low plt Plan: valium and methadone regiments tigan IM + imodium
[2019-06-18] MEDS ORDERED: METHADONE HCL 10 MG TABLET (FOR DETOX USE ONLY) PO ONE (10:00)
[2019-06-18] MEDS: PRENATAL VITAMINS W/ FOLIC ACID TABLET (FP) PO SCH (10:02)
[2019-06-18] MEDS: diazePAM 5 MG TABLET PO PRN ×2 (10:02→14:08)
[2019-06-18] MEDS: NICOTINE 21 MG/24 HOURS TOPICAL PATCH TD SCH (10:07)
[2019-06-18] MEDS: QUEtiapine FUMARATE 100 MG TABLET (FP) PO SCH (22:04)
[2019-06-18] MEDS: THIAMINE HCL 100 MG TABLET (FP) PO SCH (22:05)
[2019-06-19] MEDS ORDERED: diazePAM 5 MG TABLET PO ONE (06:00)
[2019-06-19] MEDS ORDERED: METHADONE HCL 10 MG TABLET (FOR DETOX USE ONLY) ONE (09:37)
[2019-06-19] MEDS ORDERED: METHADONE HCL 5 MG TABLET (FOR DETOX USE ONLY) ONE (09:37)
[2019-06-19] MEDS ORDERED: METHADONE (DETOX) 10 MG, METHADONE (DETOX) 5 MG PO ONE (10:00)
[2019-06-19] MEDS: PRENATAL VITAMINS W/ FOLIC ACID TABLET (FP) PO SCH (10:36)
[2019-06-19] MEDS: NICOTINE 21 MG/24 HOURS TOPICAL PATCH TD SCH (10:37)
[2019-06-19] MEDS: diazePAM 5 MG TABLET PO PRN (10:42)
--- NOTE | 2019-06-19 10:49 | PN ---
[facility] CIWA - CIWA Score Nausea/Vomitin-No Nausea/No Vomiting Muscle Tremors: 2 Anxiety: 2 Agitation: 1-Slight > Activity Paroxysmal Sweats: 2 Orientation: 0-Oriented Tacttile Disturbances: 0-None Auditory Disturbances: 0-None Visual Disturbances: 0-None Headache: 0-None Present CIWA-Ar Total Score: 7 [facility] COWS - Scale Resting Pulse: 1= [place] 81-100 Sweatin= Chills/Flushing Restless Observation: 0= Sits Still Pupil Size: 1= Pupils >than Normal Bone or Joint Aches: 1= Mild Discomfort Runny Nose/ Eye Tearin= None GI Upset > 30mins: 1= Stomach Cramp Tremor Observation of Outstretched Hands: 1= Tremor Pax, Not Seen Yawning Observation: 0= None Anxiety or Irritability: 1=Feels Anxious/Irritable Goose Flesh Skin: 0=Smooth Skin COWS Score: 7 S Progress Note (SOAP) Subjective: 44 years old female admitted on 06/16/19 for benzo and opiate withdrawal sx management treating with valium and methadone detox regiments feeling ok today ambulating on hallway attending behavior and psychosocial therapies groups and meetings Objective: 06/19/19 10:54 Vital Signs Temperature 98.3 F 06/19/19 08:53 Pulse Rate 83 06/19/19 08:53 Respiratory Rate 18 06/19/19 08:53 Blood Pressure 109/79 06/19/19 08:53 O2 Sat by Pulse Oximetry (%) Laboratory Last Values WBC 2.1 K/mm3 (4.0-10.0) L 06/17/19 07:25 RBC 3.89 M/mm3 (3.60-5.2) 06/17/19 07:25 Hgb 11.5 GM/dL (10.7-15.3) 06/17/19 07:25 Hct 34.2 % (32.4-45.2) 06/17/19 07:25 MCV 87.9 fl (80-96) 06/17/19 07:25 MCH 29.6 pg (25.7-33.7) 06/17/19 07:25 MCHC 33.6 g/dl (32.0-36.0) 06/17/19 07:25 RDW 14.7 % (11.6-15.6) 06/17/19 07:25 Plt Count 76 K/MM3 (134-434) L 06/17/19 07:25 MPV 10.8 fl (7.5-11.1) 06/17/19 07:25 Sodium 139 mmol/L (136-145) 06/17/19 07:25 Potassium 3.7 mmol/L (3.5-5.1) 06/17/19 07:25 Chloride 108 mmol/L (98-107) H 06/17/19 07:25 Carbon Dioxide 26 mmol/L (21-32) 06/17/19 07:25 Anion Gap 5 MMOL/L (8-16) L 06/17/19 07:25 BUN 14.1 mg/dL (7-18) 06/17/19 07:25 Creatinine 0.7 mg/dL (0.55-1.3) 06/17/19 07:25 Est GFR (CKD-EPI)AfAm 122.13 06/17/19 07:25 Est GFR (CKD-EPI)NonAf 105.37 06/17/19 07:25 Random Glucose 89 mg/dL (74-106) 06/17/19 07:25 Calcium 8.5 mg/dL (8.5-10.1) 06/17/19 07:25 Total Bilirubin 0.9 mg/dL (0.2-1) 06/17/19 07:25 AST 24 U/L (15-37) 06/17/19 07:25 ALT 19 U/L (13-61) 06/17/19 07:25 Alkaline Phosphatase 66 U/L (45-117) 06/17/19 07:25 Total Protein 7.0 g/dl (6.4-8.2) 06/17/19 07:25 Albumin 3.6 g/dl (3.4-5.0) 06/17/19 07:25 RPR Titer Nonreactive (NONREACTIVE) 06/17/19 07:25 lab noted no motrin chronic low wbc Assessment: 06/19/19 10:55 benzo and opiate withdrawal Plan: valium and methadone regiments
--- NOTE | 2019-06-19 15:29 | PN ---
Psychiatric Progress Note Vital Signs: Vital Signs Period Temp Pulse Resp BP Sys/Bean Pulse Ox Last 24 Hr 96.5 F-98.3 F 66-83 16-18 99-113/67-79 Date of Session: 06/19/19 Chief Complaint:: " I still cannot stay asleep at night. I used to be on more seroquel." HPI: Day 4 of detoxification. Hospital course is unremarkable except for complaint of insomnia. Ms Joseph requested contact with psychiatrist to discuss increase of seroquel dose. ROS: Unremarkable. Patient is always observed in communal areas socializing with peers. Ambulatory. Alert + fully oriented. Current Medications: Active Medications Generic Name Dose Route Start Last Admin Trade Name Freq PRN Reason Stop Dose Admin Acetaminophen 650 mg 06/16/19 13:33 Tylenol - PO Q6H PRN PAIN LEVEL 4 - 6 Acetaminophen 650 mg 06/16/19 13:33 Tylenol - PO Q6H PRN FEVER Al Hydroxide/Mg Hydroxide 30 ml 06/16/19 13:33 Mylanta Oral Suspension - PO Q6H PRN DYSPEPSIA Eucalyptus/Menthol/Phenol/Sorbitol 1 each 06/16/19 13:33 Cepastat Lozenge - MM 06/22/19 13:33 Q4H PRN SORE THROAT Loperamide HCl 4 mg 06/18/19 08:35 Imodium - PO Q6H PRN DIARRHEA Magnesium Citrate 300 ml 06/16/19 13:33 Citroma - PO Q48H PRN CONSTIPATION Magnesium Hydroxide 30 ml 06/16/19 13:33 Milk Of Magnesia - PO PRN PRN CONSTIPATION Melatonin 5 mg 06/16/19 13:33 Melatonin PO HS PRN INSOMNIA Methadone HCl 5 mg 06/21/19 06:00 Dolophine - PO 06/21/19 06:01 ONCE@0600 ONE Methadone HCl 10 mg 06/20/19 10:00 Dolophine - PO 06/20/19 10:01 ONCE ONE Methocarbamol 500 mg 06/16/19 13:33 06/18/19 17:32 Robaxin - PO 06/22/19 13:33 500 mg Q6H PRN Administration MUSCLE SPASMS Nicotine 21 mg 06/16/19 13:45 06/19/19 10:37 Nicoderm Patch - TD Not Given DAILY MARCIA Multivit/Folic Acid/Iron 1 tab 06/17/19 10:00 06/19/19 10:36 Vitamins (Sjr) - PO 1 tab DAILY MARCIA Administration Quetiapine Fumarate 100 mg 06/16/19 22:00 06/18/19 22:04 Seroquel - PO 100 mg HS MARCIA Administration Quetiapine Fumarate 150 mg 06/19/19 22:00 Seroquel - PO HS MARCIA Thiamine HCl 100 mg 06/16/19 22:00 06/18/19 22:05 Vitamin B1 - PO Not Given HS MARCIA Medication(s) Change(s): Seroquel is raised to 150 mg po hs. Side effects/ benefits revisited with the patient. Ms Joseph is in agreement with this plan. Principles of sleep hygiene are also reviewed in this session. Current Side Effect: No Lab tests ordered: No Lab tests reviewed: Yes Provider note:: Met with patient. Nursing notes reviewed. Doing well except for insomnia. Active on the unit. Looking forward to transitioning to [facility] for rehabilitation. Stable mental status. See MSE report for details. Benign hospital course. Daily monitoring of patient's progress. Total face to face time:: 25 Mental Status Exam - Mental Status Exam Alert and Oriented to: Time, Place, Person Cognitive Function: Good Patient Appearance: Well Groomed Mood: Hopeful, Euthymic Affect: Appropriate, Normal Range Patient Behavior: Appropriate, Cooperative Speech Pattern: Clear, Appropriate Voice Loudness: Normal Thought Process: Intact, Goal Oriented Thought Disorder: Not Present Hallucinations: Denies Suicidal Ideation: Denies Homicidal Ideation: Denies Insight/Judgement: Fair Sleep: Poorly, Difficulty falling asleep Appetite: Good Gait/Station: Normal Psychiatric Treatment Plan - Problem List (1) Opioid dependence with withdrawal Current Visit: Yes Comment: . (2) Sedative, hypnotic or anxiolytic abuse, uncomplicated Current Visit: Yes Comment: . (3) Nicotine dependence Current Visit: Yes Qualifiers: Nicotine product type: cigarettes Substance use status: in withdrawal Qualified Code(s): F17.213 - Nicotine dependence, cigarettes, with withdrawal Comment: . (4) Substance induced mood disorder Current Visit: Yes Comment: . (5) Insomnia Current Visit: Yes Qualifiers: Insomnia type: unspecified Qualified Code(s): G47.00 - Insomnia, unspecified Comment: .
[2019-06-19] MEDS ORDERED: QUEtiapine FUMARATE 50 MG TABLET PO SCH (22:00)
[2019-06-19] MEDS: THIAMINE HCL 100 MG TABLET (FP) PO SCH (22:23)
[2019-06-19] MEDS: QUEtiapine FUMARATE 100 MG TABLET (FP) PO SCH (23:16)
[2019-06-20 07:17] VITALS: BP 116/70; PULSE 70; TEMP 98.1
[2019-06-20] MEDS ORDERED: METHADONE HCL 10 MG TABLET (FOR DETOX USE ONLY) PO ONE (10:00)
--- NOTE | 2019-06-20 13:39 | DS ---
[facility] Detox Discharge Summary Admission Date: 06/16/19 Discharge Date: 06/20/19 - History Present History: Alcohol Dependence, Sedative Dependence Additional Comments: 44 years old female admitted on 06/16/19 for benzo and opiate withdrawal sx management treated wtih vlaium and methadone regiments patient left the detox unit round 730am today scenario writer has not assessed nor evaluated the patient upon discharge Pertinent Past History: time for discharge 16 minutes - Physical Exam Results Vital Signs: Vital Signs Temperature 98.1 F 06/20/19 07:16 Pulse Rate 70 06/20/19 07:16 Respiratory Rate 18 06/20/19 07:16 Blood Pressure 116/70 06/20/19 07:16 O2 Sat by Pulse Oximetry (%) Pertinent Admission Physical Exam Findings: benzo and opiate withdrawal Laboratory Last Values WBC 2.1 K/mm3 (4.0-10.0) L 06/17/19 07:25 RBC 3.89 M/mm3 (3.60-5.2) 06/17/19 07:25 Hgb 11.5 GM/dL (10.7-15.3) 06/17/19 07:25 Hct 34.2 % (32.4-45.2) 06/17/19 07:25 MCV 87.9 fl (80-96) 06/17/19 07:25 MCH 29.6 pg (25.7-33.7) 06/17/19 07:25 MCHC 33.6 g/dl (32.0-36.0) 06/17/19 07:25 RDW 14.7 % (11.6-15.6) 06/17/19 07:25 Plt Count 76 K/MM3 (134-434) L 06/17/19 07:25 MPV 10.8 fl (7.5-11.1) 06/17/19 07:25 Sodium 139 mmol/L (136-145) 06/17/19 07:25 Potassium 3.7 mmol/L (3.5-5.1) 06/17/19 07:25 Chloride 108 mmol/L (98-107) H 06/17/19 07:25 Carbon Dioxide 26 mmol/L (21-32) 06/17/19 07:25 Anion Gap 5 MMOL/L (8-16) L 06/17/19 07:25 BUN 14.1 mg/dL (7-18) 06/17/19 07:25 Creatinine 0.7 mg/dL (0.55-1.3) 06/17/19 07:25 Est GFR (CKD-EPI)AfAm 122.13 06/17/19 07:25 Est GFR (CKD-EPI)NonAf 105.37 06/17/19 07:25 Random Glucose 89 mg/dL (74-106) 06/17/19 07:25 Calcium 8.5 mg/dL (8.5-10.1) 06/17/19 07:25 Total Bilirubin 0.9 mg/dL (0.2-1) 06/17/19 07:25 AST 24 U/L (15-37) 06/17/19 07:25 ALT 19 U/L (13-61) 06/17/19 07:25 Alkaline Phosphatase 66 U/L (45-117) 06/17/19 07:25 Total Protein 7.0 g/dl (6.4-8.2) 06/17/19 07:25 Albumin 3.6 g/dl (3.4-5.0) 06/17/19 07:25 RPR Titer Nonreactive (NONREACTIVE) 06/17/19 07:25 lab noted - Treatment Hospital Course: Detox Protocol Followed, Detoxed Safely, Responded well, Discharged Condition Good (based on nursing report), Rehab Referral Accepted Patient has Accepted a Rehab Referral to: [facility] - Medication Discharge Medications: Ambulatory Orders NK [No Known Home Medication] 06/16/19 - Diagnosis (1) Benzodiazepine abuse, continuous Status: Acute (2) Opioid dependence with withdrawal Status: Acute (3) Sedative, hypnotic or anxiolytic abuse, uncomplicated Status: Acute (4) Substance induced mood disorder Status: Suspected - AMA Did Patient Leave Against Medical Advice: No
[2019-06-21] MEDS ORDERED: METHADONE HCL 5 MG TABLET (FOR DETOX USE ONLY) PO ONE (06:00)
== END 2019-06-20 07:40 | disposition home or self-care (01) | DRG 773 ==
LOC: YASAS 10:03 → Y3N 13:42
PROVIDERS: ADMIT Allergy & Immunology; ATTEND Allergy & Immunology
PROC: HZ2ZZZZ Detoxification Services for Substance Abuse Treatment (ICD-10-PCS; principal; 2019-06-16)
DX: F11.23 Opioid dependence with withdrawal (principal); F13.230 Sedative, hypnotic or anxiolytic dependence with withdrawal, uncomplicated; F17.210 Nicotine dependence, cigarettes, uncomplicated; F19.24 Other psychoactive substance dependence with psychoactive substance-induced mood disorder; F33.9 Major depressive disorder, recurrent, unspecified; F41.9 Anxiety disorder, unspecified; F43.10 Post-traumatic stress disorder, unspecified; G47.00 Insomnia, unspecified; Z86.19 Personal history of other infectious and parasitic diseases; Z98.51 Tubal ligation status; Z91.5 Personal history of self-harm; Z88.8 Allergy status to other drugs, medicaments and biological substances; Z91.19 Patient's noncompliance with other medical treatment and regimen
CPT/HCPCS: 36415; 80053; 85027; 86593; Q0162